=== PATIENT | male | born 1950 | race Caucasian/White ===

== ENCOUNTER 2017-09-20 11:51 | Inpatient (IN) | payer MEDICARE ==
[2017-09-20] MEDS ORDERED: LEVOFLOXACIN 750 MG IVPB ONE (12:10)
[2017-09-20] MEDS ORDERED: NS 0.9% 1000 ML* 1,000 ML IV ONE ×2 (12:20→16:01)
[2017-09-20 12:47] LABS: Hematocrit 32 % (42-52); Hemoglobin 10.8 g/dl (14.0-18.0); Mean Corpuscular HGB Conc 34 g/dl (31-36); Mean Corpuscular Hemoglobin 34 pg (27-31); Mean Corpuscular Volume 99 fL (80-94); Mean Platelet Volume 7 um3 (7.4-10.4); Platelet Count 492 10^3/ul (150-450); Red Blood Count 3.21 10^6/ul (4.0-5.4); Red Cell Distribution Width 13 % (10.5-15); White Blood Count 26.9 10^3/ul (3.5-10.8)
[2017-09-20 12:50] LABS: ABS Basophils 0.1 10^3/ul (0-0.2); ABS Eosinophils 0.1 10^3/ul (0-0.6); ABS Lymphocytes 0.6 10^3/ul (1.0-4.8); ABS Monocytes 1.8 10^3/ul (0-0.8); ABS Neutrophils 24.3 10^3/ul (1.5-7.7); ABS Nucleated RBC 0 10^3/ul; Eosinophil % 0.2 % (0-6); Lymphocyte % 2.3 % (25-47); Nucleated Red Blood Cells % 0
[2017-09-20 13:00] LABS: Urine Appearance Clear; Urine Blood 2+ (Negative); Urine Color Amber; Urine Ketones 2+ (Negative); Urine Protein 2+(100 mg/dL) (Negative); Urine Specific Gravity 1.028 (1.010-1.030); Urine Urobilinogen Negative (Negative)
[2017-09-20 13:05] LABS: EGFR Non-African American 55.4 (>60)
[2017-09-20] MEDS ORDERED: Levofloxacin 750 MG IVPREMIX(* 750 MG/150 ML BAG IVPB ONE (13:11)
--- NOTE | 2017-09-20 13:53 | RAD ---
HISTORY: Cough and fever COMPARISONS: October 31, 2010 VIEWS: 4: Frontal dual-energy and lateral views of the chest. FINDINGS: CARDIOMEDIASTINAL SILHOUETTE: The cardiomediastinal silhouette is normal. OBED: The obed are normal. PLEURA: The costophrenic angles are sharp. No pleural abnormalities are noted. LUNG PARENCHYMA: There is patchy alveolar opacification of left lower lobe. ABDOMEN: The upper abdomen is clear. There is no subphrenic gas. BONES AND SOFT TISSUES: The patient is status post median sternotomy. OTHER: None. IMPRESSION: PATCHY ATELECTASIS VERSUS EARLY CONSOLIDATION OF THE LEFT LOWER LUNG. RECOMMEND FOLLOW-UP UNTIL RESOLUTION TO EXCLUDE UNDERLYING PULMONARY PARENCHYMAL PATHOLOGY.
[2017-09-20] MEDS ORDERED: Insulin REGULAR(*) 1 UNITS UNIT IV PUSH ONE (14:21)
--- NOTE | 2017-09-20 15:01 | ED ---
Alyx Kumar Gabriel, scribed for Niles Rutherford MD on 09/20/17 at 1218 . Respiratory - HPI Summary HPI Summary: This patient is a 67 year old M presenting to [facility] accompanied by by his with a chief complaint of a URI that is getting worse. Patient reports decreased appetite, slurring of words, dizziness, fatigue, productive cough with yellow phlegm, and nausea. Patient denies fever, vomiting, diarrhea, dysuria, sore throat, and rhinorrhea. Pt was sick in [place] and was given Tamiflu for 5 days which did not help then he saw Dr. Collins and was put on a zpack for a URI. Pt has DM and had an A1C over 7 and a blood glucose over 300 at PCP. - History of Current Complaint Chief Complaint: EDWeakness Stated Complaint: UPPER RESPIRATORY ISSUE Time Seen by Provider: 09/20/17 12:12 Hx Obtained From: Patient Onset/Duration: Lasting Weeks, Still Present Timing: Constant Initial Severity: Moderate Current Severity: Moderate Pain Intensity: 0 Sputum Amount: Moderate Sputum Color: Yellow Aggravating Factor(s): Nothing Associated Signs and Symptoms: Negative - fever, vomiting, diarrhea, dysuria, sore throat, and rhinorrhea, URI, Dizziness - Allergy/Home Medications Allergies/Adverse Reactions: Allergies Allergy/AdvReac Type Severity Reaction Status Date / Time No Known Allergies Allergy Verified 09/20/17 12:21 Home Medications: Home Medications Aspirin Low Dose CHEW TAB* [Aspirin Low Dose TAB*] 81 mg PO DAILY 09/20/17 [ History Confirmed 09/20/17] Azithromycin TAB* [Zithromax TAB (Z-RADHA) 250 mg #6 tabs] 250 mg PO DAILY [History Confirmed 09/20/17] Codeine Phosphate/Guaifenesin [Cheratussin AC Syrup] 15 ml PO DAILY 09/20/17 [ History Confirmed 09/20/17] Cyanocobalamin TAB* [Vitamin B12 TAB*] 1,000 mcg PO DAILY 09/20/17 [History Confirmed 09/20/17] Folic Acid TAB* [Folvite TAB*] 1 mg PO DAILY 09/20/17 [History Confirmed ] Gabapentin CAP(*) [Neurontin 100 mg CAP(*)] 100 - 300 mg PO BEDTIME 09/20/17 [ History Confirmed 09/20/17] Metoprolol Tartrate TAB* [Lopressor TAB*] 25 mg PO QPM 09/20/17 [History Confirmed 09/20/17] Metoprolol Tartrate TAB* [Lopressor TAB*] 50 mg PO QAM 09/20/17 [History Confirmed 09/20/17] Niacin ER TAB* [Niaspan ER TAB*] 1,000 mg PO DAILY 09/20/17 [History Confirmed 09/20/17] Simvastatin TAB(NF) [Zocor(NF)] 5 mg PO QPM 09/20/17 [History Confirmed 09/20/17 ] metFORMIN* [Glucophage 500 MG TAB *] 500 mg PO BID 09/20/17 [History Confirmed 09/20/17] sulfaSALAzine TAB* [Azulfidine TAB*] 1,500 mg PO TID 09/20/17 [History Confirmed 09/20/17] PMH/Surg Hx/FS Hx/Imm Hx Endocrine/Hematology History: Reports: Hx Diabetes, Other Endocrine/ Hematological Disorders - Non Hodgkin lymphoma Cardiovascular History: Reports: Hx Coronary Artery Disease, Hx Hypercholesterolemia, Hx Hypertension Respiratory History: Denies: Hx Chronic Obstructive Pulmonary Disease (COPD) GI History: Reports: Other GI Disorders - UC Neurological History: Reports: Other Neuro Impairments/Disorders - Neuropathy - Cancer History Cancer Type, Location and Year: prostate Infectious Disease History: No Infectious Disease History: Denies: Traveled Outside the [place] in Last 30 Days - Family History Known Family History: Positive: Cardiac Disease Negative: Renal Disease, Seizure Disorder - Social History Lives: With Family Alcohol Use: Occasionally Hx Substance Use: No Substance Use Type: Reports: None Hx Tobacco Use: No Smoking Status (MU): Never Smoked Tobacco Review of Systems Positive: Fatigue, Other - decreased appetite. Negative: Fever Negative: Sore Throat, Nasal Discharge Positive: Cough - productive Positive: Nausea. Negative: Vomiting, Diarrhea Negative: dysuria Neurological: Other - dizziness Positive: Slurred Speech All Other Systems Reviewed And Are Negative: Yes Physical Exam - Summary Physical Exam Summary: VITAL SIGNS: Reviewed. GENERAL: Patient is a well-developed and nourished male who is lying comfortable in the stretcher. Patient is not in any acute respiratory distress. HEAD AND FACE: No signs of trauma. No ecchymosis, hematomas or skull depressions. No sinus tenderness. EYES: PERRLA, EOMI x 2, No injected conjunctiva, no nystagmus. EARS: Hearing grossly intact. Ear canals and tympanic membranes are within normal limits. MOUTH: dry oral mucosa NECK: Supple, trachea is midline, no adenopathy, no JVD, no carotid bruit, no c- spine tenderness, neck with full ROM. CHEST: Symmetric, no tenderness at palpation LUNGS: Clear to auscultation bilaterally. No wheezing or crackles. CVS: Regular rate and rhythm, S1 and S2 present, no murmurs or gallops appreciated. ABDOMEN: Soft, non-tender. No signs of distention. No rebound no guarding, and no masses palpated. Bowel sounds are normal. EXTREMITIES: FROM in all major joints, no edema, no cyanosis or clubbing. NEURO: Alert and oriented x 3. No acute neurological deficits. Speech is normal and follows commands. SKIN: Dry and warm Triage Information Reviewed: Yes Vital Signs On Initial Exam: Initial Vitals Temp Pulse Resp BP Pulse Ox 98.3 F 77 16 168/71 96 09/20/17 12:03 09/20/17 12:03 09/20/17 12:03 09/20/17 12:03 09/20/17 12:03 Vital Signs Reviewed: Yes Diagnostics - Vital Signs Vital Signs Temp Pulse Resp BP Pulse Ox 09/20/17 12:03 98.3 F 77 16 168/71 96 - Laboratory Lab Results: Lab Results 09/20/17 09/20/17 09/20/17 Range/Units 12:27 12:27 12:27 WBC 26.9 H (3.5-10.8) 10^3/ul RBC 3.21 L (4.0-5.4) 10^6/ul Hgb 10.8 L (14.0-18.0) g/dl Hct 32 L (42-52) % MCV 99 H (80-94) fL MCH 34 H (27-31) pg MCHC 34 (31-36) g/dl RDW 13 (10.5-15) % Plt Count 492 H (150-450) 10^3/ul MPV 7 L (7.4-10.4) um3 Neut % (Auto) 90.4 H (38-83) % Lymph % (Auto) 2.3 L (25-47) % [place] % (Auto) 6.8 (0-7) % Eos % (Auto) 0.2 (0-6) % Baso % (Auto) 0.3 (0-2) % Absolute Neuts (auto) 24.3 H (1.5-7.7) 10^3/ul Absolute Lymphs (auto) 0.6 L (1.0-4.8) 10^3/ul Absolute Monos (auto) 1.8 H (0-0.8) 10^3/ul Absolute Eos (auto) 0.1 (0-0.6) 10^3/ul Absolute Basos (auto) 0.1 (0-0.2) 10^3/ul Absolute Nucleated RBC 0 10^3/ul Nucleated RBC % 0 Sodium 126 L (133-145) mmol/L Potassium 3.8 (3.5-5.0) mmol/L Chloride 94 L (101-111) mmol/L Carbon Dioxide 16 L (22-32) mmol/L Anion Gap 16 H (2-11) mmol/L BUN 16 (6-24) mg/dL Creatinine 1.29 H (0.67-1.17) mg/dL Est GFR ( Amer) 71.2 (>60) Est GFR (Non-Af Amer) 55.4 (>60) BUN/Creatinine Ratio 12.4 (8-20) Glucose 401 H (70-100) mg/dL Lactic Acid 1.1 (0.5-2.0) mmol/L Calcium 10.0 (8.6-10.3) mg/dL Total Bilirubin 0.40 (0.2-1.0) mg/dL AST 13 (13-39) U/L ALT 13 (7-52) U/L Alkaline Phosphatase 102 (34-104) U/L Total Creatine Kinase 47 (10-223) U/L Troponin I 0.04 H* (<0.04) ng/mL C-Reactive Protein 303.39 H (< 5.00) mg/L Total Protein 7.8 (6.4-8.9) g/dL Albumin 3.7 (3.2-5.2) g/dL Globulin 4.1 H (2-4) g/dL Albumin/Globulin Ratio 0.9 L (1-3) Urine Color Urine Appearance Urine pH (5-9) Ur Specific [place] (1.010-1.030) Urine Protein (Negative) Urine Ketones (Negative) Urine Blood (Negative) Urine Nitrate (Negative) Urine Bilirubin (Negative) Urine Urobilinogen (Negative) Ur Leukocyte Esterase (Negative) Urine WBC (Auto) (Absent) Urine RBC (Auto) (Absent) Ur Squamous Epith Cells (Absent) Urine Bacteria (Absent) Urine Glucose (Negative) Influenza A (Rapid) (Negative) Influenza B (Rapid) (Negative) 09/20/17 09/20/17 Range/Units 12:41 12:44 WBC (3.5-10.8) 10^3/ul RBC (4.0-5.4) 10^6/ul Hgb (14.0-18.0) g/dl Hct (42-52) % MCV (80-94) fL MCH (27-31) pg MCHC (31-36) g/dl RDW (10.5-15) % Plt Count (150-450) 10^3/ul MPV (7.4-10.4) um3 Neut % (Auto) (38-83) % Lymph % (Auto) (25-47) % [place] % (Auto) (0-7) % Eos % (Auto) (0-6) % Baso % (Auto) (0-2) % Absolute Neuts (auto) (1.5-7.7) 10^3/ul Absolute Lymphs (auto) (1.0-4.8) 10^3/ul Absolute Monos (auto) (0-0.8) 10^3/ul Absolute Eos (auto) (0-0.6) 10^3/ul Absolute Basos (auto) (0-0.2) 10^3/ul Absolute Nucleated RBC 10^3/ul Nucleated RBC % Sodium (133-145) mmol/L Potassium (3.5-5.0) mmol/L Chloride (101-111) mmol/L Carbon Dioxide (22-32) mmol/L Anion Gap (2-11) mmol/L BUN (6-24) mg/dL Creatinine (0.67-1.17) mg/dL Est GFR ( Amer) (>60) Est GFR (Non-Af Amer) (>60) BUN/Creatinine Ratio (8-20) Glucose (70-100) mg/dL Lactic Acid (0.5-2.0) mmol/L Calcium (8.6-10.3) mg/dL Total Bilirubin (0.2-1.0) mg/dL AST (13-39) U/L ALT (7-52) U/L Alkaline Phosphatase (34-104) U/L Total Creatine Kinase (10-223) U/L Troponin I (<0.04) ng/mL C-Reactive Protein (< 5.00) mg/L Total Protein (6.4-8.9) g/dL Albumin (3.2-5.2) g/dL Globulin (2-4) g/dL Albumin/Globulin Ratio (1-3) Urine Color Eileen Urine Appearance Clear Urine pH 5.0 (5-9) Ur Specific [place] 1.028 (1.010-1.030) Urine Protein 2+(100 mg/dl) A (Negative) Urine Ketones 2+ A (Negative) Urine Blood 2+ A (Negative) Urine Nitrate Negative (Negative) Urine Bilirubin Negative (Negative) Urine Urobilinogen Negative (Negative) Ur Leukocyte Esterase Negative (Negative) Urine WBC (Auto) Trace(0-5/hpf) (Absent) Urine RBC (Auto) Trace(0-2/hpf) (Absent) Ur Squamous Epith Cells Present A (Absent) Urine Bacteria Absent (Absent) Urine Glucose 3+(>=500 mg/dl) A (Negative) Influenza A (Rapid) Negative (Negative) Influenza B (Rapid) Negative (Negative) Result Diagrams: 09/20/17 12:27 09/20/17 12:27 Lab Statement: Any lab studies that have been ordered have been reviewed, and results considered in the medical decision making process. - Radiology CXR Radiology Interpretation Completed By: Radiologist - PATCHY ATELECTASIS VERSUS EARLY CONSOLIDATION OF THE LEFT LOWER LUNG. RECOMMEND FOLLOW-UP UNTIL RESOLUTION TO EXCLUDE UNDERLYING PULMONARY PARENCHYMAL PATHOLOGY. ED physician has reviewed this radiology report. - EKG 12:50 Cardiac Rate: NL EKG Rhythm: Sinus Rhythm - at 79 BPM EKG Interpretation: no ST elevations Disposition - Course Assessment/Plan: An EKG reveals no ST elevations. CXR reveals, per radiologist , PATCHY ATELECTASIS VERSUS EARLY CONSOLIDATION OF THE LEFT LOWER LUNG. RECOMMEND FOLLOW-UP. UNTIL RESOLUTION TO EXCLUDE UNDERLYING PULMONARY PARENCHYMAL PATHOLOGY. Patient was negative for influenza A and B. UA was negative for UTI. Test results with no significant abnormalities except for a WBC of 26.9, sodium of 126, CRP of 303, glucose of 401, slight anemia, creatinine of 129, and a Trop of 0.04. In the ED course the patient was given IV fluids, insulin, and Levaquin for PNA. I discussed all the findings and test results with the patient.The patient is hemodynamically stable and alert and orinetedx3. The patient is diagnosed with hyperglycemia, increased troponin r/o acute coronary syndrome, and PNA. We discussed patient care with Dr. Alejandre and he accepted the patient for admission. Patient will be admitted to Dr. Alejandre The patient is agreeable with this plan - Diagnoses Provider Diagnoses: PNA (pneumonia), Hyperglycemia, Elevated troponin, r/o acute coronary syndrome - Physician Notifications Discussed Care Of Patient With: Luiz Alejandre Time Discussed With Above Provider: 13:58 Instructed by Provider To: Admit As Inpatient Discharge - Discharge Plan Condition: Fair Disposition: ADMITTED TO [facility] Referrals: Bala Collins MD [Primary Care Provider] - The documentation as recorded by the Alyx nails Gabriel accurately reflects the service I personally performed and the decisions made by , Niles Rutherford MD.
[2017-09-20] MEDS ORDERED: Ondansetron INJ* 2 MG/ML VIAL IV PRN (15:50)
[2017-09-20] MEDS ORDERED: Albuterol/Ipratropium NEB.SOL* Albuterol 2.5 MG/Ipratropium 0.5 MG 3 ML INH PRN (15:50)
[2017-09-20] MEDS ORDERED: Dextrose 50% Syringe 50 ML* 25 GM/50 ML SYRINGE IV PUSH PRN (15:54)
[2017-09-20] MEDS ORDERED: NS 0.9% 1000 ML* 1,000 ML IV SCH (16:15)
[2017-09-20] MEDS: cefTRIAXone(*) 1 GM in NS 0.9% 50 ML* 50 ML IVPB SCH (16:25)
[2017-09-20] MEDS: Azithromycin IV(*) 500 MG in NS 0.9% 250 ML* 250 ML IVPB SCH (17:46)
[2017-09-20] MEDS: Metoprolol Tartrate TAB* 25 MG PO SCH (17:47)
[2017-09-20] MEDS: Insulin LISPRO* 1 UNITS UNIT SUBCUT SCH (17:47)
[2017-09-20] MEDS ORDERED: Atorvastatin* 10 MG TAB PO SCH (18:00)
[2017-09-20] MEDS: CMCS:Simvastatin TAB(NF) 10 MG TAB PO SCH (18:28)
--- NOTE | 2017-09-20 20:32 | HP ---
CC: Dr. Collins * HISTORY AND PHYSICAL: DATE OF ADMISSION: 09/20/17 PRIMARY CARE PROVIDER: Dr. Collins. ATTENDING PHYSICIAN WHILE IN THE HOSPITAL: Dr. Ivy * (report dictated by Balaji Lubin NP). CHIEF COMPLAINT: 1. Cough. 2. Fever. HISTORY OF PRESENT ILLNESS: Mr. Mccarthy is a 67-year-old male patient. He carries a history of lymphoma, anemia, hypertension, diabetes, hyperlipidemia, CAD, and prostate cancer. He comes in to the ED today. He states about 2 weeks ago, he was in [place]. He was over there, he started developing upper respiratory symptoms, runny nose, sore throat, cough, fevers. The was noticing that he had wheezing in his chest. He had a rattle in his chest. He had a pretty productive cough. They went to Urgent Care and in the ER down there. He was ultimately diagnosed with influenza with a negative flu swab according to the . He was put on Tamiflu for 5 days. He initially got a little bit better. He came home and since being home, he still had this persistent cough, low-grade fevers. He had regularly scheduled appointment with Dr. Collins, his PCP, on , who evaluated him. He put him on azithromycin. The patient states that despite this though, he is short of breath particularly if he does anything or particularly if he coughs. He states that he has been fever still. He has had the chest pain when he does cough. He denies having any orthopnea or nocturnal dyspnea. Denies having any chest pressure. It is really just a pain when he coughs. He denies having any abdominal pain. There has been no nausea, vomiting, or diarrhea. He does admit to having again productive cough at times. He came in to the ED today. He was evaluated. It was noted that he had white count of about 26,000. His x- ray was concerning for pneumonia and he had indeterminate troponin and CRP was 300. We were asked to evaluate for admission because of pneumonia. PAST MEDICAL HISTORY: Significant for: 1. Lymphoma. 2. Anemia. 3. Hypertension. 4. Diabetes. 5. Hyperlipidemia. 6. CAD. 7. Prostate cancer. PAST SURGICAL HISTORY: 1. The patient has had CABG. 2. He has had prostatectomy. HOME MEDICATIONS: According to the list provided include: 1. Codeine with guaifenesin 15 cc p.o. daily. 2. B12 1000 mcg daily. 3. Z-Pranav take as directed. 4. Lopressor 50 mg in the morning, 25 mg at bedtime. 5. Folic acid 1 mg p.o. daily. 6. Aspirin 81 mg daily. 7. Sulfasalazine 1500 mg p.o. t.i.d. 8. Niaspan 1000 mg p.o. daily. 9. Metformin 500 mg twice a day. 10. Zocor 5 mg daily. 11. Gabapentin 100 and 300 mg at bedtime. ALLERGIES TO MEDICATIONS: Include no known drug allergies. FAMILY HISTORY: His mother had a history of pancreatic cancer. Father had a history of prostate cancer and CAD. SOCIAL HISTORY: He is a former smoker. He quit when he was 39 years old. He occasionally drinks alcohol. Surrogate decision maker is his . REVIEW OF SYSTEMS: There is no documented fever here, but he does admit to subjectively having low-grade temperatures at home. He denies having any ear discharge. There is no rhinorrhea. Denies having any sore throat currently. Denies any abdominal pain. He does admit to having rhinorrhea. He did admit to having a sore throat. He does admit to having chest pain with cough. He denies having any shortness of breath with the exception with exertion and when he is coughing. He denies having any abdominal pain. There is no nausea, no vomiting. Denied having any dysuria. No frequency. There was no loss of consciousness. No pruritus and no skin ulcerations. Review of 14 systems was completed, all others negative. PHYSICAL EXAMINATION GENERAL: At this time, Mr. Mccarthy is a 67-year-old male patient. Appears to be well nourished, well developed. He is sitting on the ER stretcher. He does not appear to be in any acute distress. VITAL SIGNS: Blood pressure 175/71, pulse 87, respirations were 18, O2 sat 95% , temperature 98.3. HEENT: Head: Atraumatic, normocephalic. Eyes: EOMs are intact. Sclerae anicteric and not pale. Throat: Oral mucosa appears to be dry. No oropharyngeal erythema. NECK: Supple. LUNGS: He did have some crackles in the left base. He had equal diaphragmatic expansion. No wheezes were noted. HEART: Sounds S1, S2. Regular rate and rhythm. No murmurs, rubs, or gallops. ABDOMEN: Soft, flat, nontender. Bowel sounds were present. EXTREMITIES: Pulses were 2+ throughout. He is moving all 4 extremities with 5/ 5 strength. NEUROLOGIC: The patient is awake. He is alert. He is oriented x3. His tongue is midline. His tax expert were equal. He had no gross focal deficits. SKIN: Intact. LABORATORY DATA/DIAGNOSTIC STUDIES: WBC of 26.9, RBC of 3.21, hemoglobin of 10.8, hematocrit of 32, platelet count of 492. His sodium was 126, potassium was 3.8, chloride was 94, bicarb 16, BUN 16, creatinine 1.29, glucose of 401. Lactate 1.1. Calcium of 10.0. Total bili 0.4, AST 13, ALT 13, alk phos 102. CK 47. Troponin 0.04. CRP of 303. Albumin of 3.7. Urine showed 2+ protein, 2 + ketones, 2+ blood, 3+ glucose. Serology was negative for flu. Chest x-ray today shows patchy atelectasis versus early consolidation of the left lower lung , recommend followup until resolution to exclude underlying pulmonary parenchymal pathology. He had an EKG obtained today, which showed normal sinus rhythm, appears to have a right bundle-branch block, inverted T wave was noted in V1 and V2. Last EKG from 10 years ago again shows normal sinus rhythm. No more recent for comparison. Old medical records were reviewed. ASSESSMENT AND PLAN: Mr. Mccarthy is a 67-year-old male patient coming in to the ED today with complaints of cough, cold symptoms, recently diagnosed with flu in [place], now coming in today, found to be septic with pneumonia. He will be admitted under inpatient status for: 1. Pneumonia with signs of sepsis. At this point, we will go ahead and get the patient on a liter of fluids wide open. We will go ahead and put him on azithromycin and Rocephin. We will get Legionella antigen, Strep pneumo antigen. In addition to this, he is flu swab negative. We will go ahead and try to get a sputum culture if possible and we will continue to follow. 2. Elevated troponins. This is probably secondary to demand ischemia. He will be placed on telemetry. We will monitor him. He is on aspirin, statin, beta-clau already. He is not having any chest pain currently. We will continue to monitor. Repeat EKG in the morning. If they continue to elevate, I will get Cardiology input. 3. Lymphoma. He can follow with Dr. Barbosa. 4. Anemia. Follow with Dr. Barbosa. We will trend the H and H. 5. Hypertension. I will continue meds as prescribed. 6. Diabetes. He will be on lispro sliding scale. 7. Hyperlipidemia. Continue statin therapy. 8. Coronary artery disease. Continue his aspirin, statin, and beta-clau. 9. Prostate cancer. Follow up with his PCP. 10. DVT prophylaxis. He will be placed on heparin subcu. 11. Code status: Full code. 12. Fluids, electrolytes, and nutrition. He can have a consistent carb diet. TIME SPENT: Time spent on the admission was approximately 60 minutes; greater than half of this time spent [id number] with the patient obtaining my history and physical, the other half time was spent going over the plan of care of the patient and implementing the plan of care. I did discuss the plan of care with my attending, Dr. Ivy; he is in agreement. BALAJI LUBIN NP [id number]/[facility] #: [id number] SANDRITA
[2017-09-20 21:00] LABS: EGFR Non-African American 68.7 (>60)
[2017-09-20] MEDS ORDERED: Gabapentin CAP(*) 100 MG PO SCH (21:00)
[2017-09-20] MEDS ORDERED: sulfaSALAzine TAB* 500 MG PO SCH (21:00)
[2017-09-20] MEDS: Heparin VIAL(*) 5000 UNITS/ML VIAL (FIVE THOUSAND) SUBCUT SCH (22:15)
[2017-09-20] MEDS: Niacin ER TAB* 500 MG PO SCH (22:16)
[2017-09-20] MEDS: CMCS:Melatonin (NF) 3 MG TAB PO PRN (23:33)
[2017-09-21] MEDS: hydrALAZINE IV* 20 MG/ML VIAL IV PRN
[2017-09-21] MEDS: Acetaminophen TAB* 325 MG PO PRN ×3 (00:07→22:04)
[2017-09-21] MEDS: Benzonatate CAP* 100 MG PO PRN (00:07)
[2017-09-21] MEDS: Heparin VIAL(*) 5000 UNITS/ML VIAL (FIVE THOUSAND) SUBCUT SCH ×3 (05:05→21:44)
[2017-09-21 06:10] LABS: Hematocrit 31 % (42-52); Hemoglobin 10.2 g/dl (14.0-18.0); Mean Corpuscular HGB Conc 33 g/dl (31-36); Mean Corpuscular Hemoglobin 33 pg (27-31); Mean Corpuscular Volume 99 fL (80-94); Mean Platelet Volume 7 um3 (7.4-10.4); Platelet Count 481 10^3/ul (150-450); Red Blood Count 3.11 10^6/ul (4.0-5.4); Red Cell Distribution Width 13 % (10.5-15); White Blood Count 20.7 10^3/ul (3.5-10.8)
[2017-09-21 06:18] LABS: INR 1.37 (0.77-1.02)
[2017-09-21 06:48] LABS: ABS Basophils 0.1 10^3/ul (0-0.2); ABS Eosinophils 0.1 10^3/ul (0-0.6); ABS Lymphocytes 0.5 10^3/ul (1.0-4.8); ABS Monocytes 1.9 10^3/ul (0-0.8); ABS Nucleated RBC 0 10^3/ul; Eosinophil % 0.3 % (0-6); Lymphocyte % 2.5 % (25-47); Nucleated Red Blood Cells % 0
[2017-09-21] MEDS ORDERED: Insulin REGULAR(*) 1 UNITS UNIT IV PUSH ONE (07:51)
--- NOTE | 2017-09-21 07:59 | PN ---
Subjective Date of Service: 09/21/17 Interval History: Admitted yesterday with PNA - Overnight remained SOB, intermittent coughing with right sided pleuritic chest pain. States his brought him in because of his SOB and that he was so weak and not eating. States his sugars are usually in the high 100's. Only takes metformin. Still no appetite Objective Active Medications: Acetaminophen (Tylenol Tab*) 650 mg PO Q4H PRN PRN Reason: FEVER/PAIN Last Admin: 09/21/17 05:01 Dose: 650 mg Albuterol/Ipratropium (Duoneb (Albuterol 2.5 Mg/Ipratropium 0.5 Mg)) 1 neb INH Q4H PRN PRN Reason: SOB/WHEEZING Aspirin (Aspirin Low Dose Tab*) 81 mg PO DAILY [facility] Benzonatate (Tessalon Cap*) 100 mg PO BID PRN PRN Reason: COUGH Last Admin: 09/21/17 00:07 Dose: 100 mg Cyanocobalamin (Vitamin B12 Tab*) 1,000 mcg PO DAILY [facility] Dextrose (D50w Syringe 50 Ml*) 12.5 gm IV PUSH .FOR FS < 60 - SS PRN PRN Reason: FS < 60 Folic Acid (Folvite Tab*) 1 mg PO DAILY [facility] Gabapentin (Neurontin Cap(*)) 300 mg PO BEDTIME [facility] Heparin Sodium (Porcine) (Heparin Vial(*)) 5,000 units SUBCUT Q8HR [facility] Last Admin: 09/21/17 05:05 Dose: 5,000 units Hydralazine HCl (Apresoline Iv*) 10 mg IV Q4H PRN PRN Reason: Systolic >170 Last Admin: 09/21/17 00:00 Dose: 10 mg Ceftriaxone Sodium 1 gm/ (Sodium Chloride) 50 mls @ 200 mls/hr IVPB Q24H [facility] Last Admin: 09/20/17 16:25 Dose: 200 mls/hr Azithromycin 500 mg/ Sodium (Chloride) 250 mls @ 250 mls/hr IVPB Q24H [facility] Last Admin: 09/20/17 17:46 Dose: 250 mls/hr Sodium Chloride (Ns 0.9% 1000 Ml*) 1,000 mls @ 100 mls/hr IV PER RATE [facility] Last Admin: 09/20/17 17:29 Dose: 100 mls/hr Insulin Human Regular (Insulin Regular Ivpb) 100 units in 100 mls @ 8.704 mls/ hr IVPB .(INITIAL RATE) [place]; 0.1 UNITS/KG/HR PRN Reason: Protocol Sodium Chloride (Ns 0.9% 1000 Ml*) 2,000 mls @ 1,000 mls/hr IV .PER RATE ONE Stop: 09/21/17 09:50 Potassium Chloride (Potassium Chloride 20 Meq/100 Ml Ivpremix*) 20 meq in 100 mls @ 50 mls/hr IV Q2H [place] Stop: 09/21/17 11:59 Potassium Chloride/Sodium Chloride (Ns 0.9% W/ 20 Meq Kcl 1000 Ml*) 1,000 mls @ 200 mls/hr IV PER RATE [facility] Melatonin (Melatonin (Nf)) 3 mg PO BEDTIME PRN PRN Reason: SLEEP Last Admin: 09/20/17 23:33 Dose: 3 mg Metoprolol Tartrate (Lopressor Tab*) 25 mg PO QPM [facility] Last Admin: 09/20/17 17:47 Dose: 25 mg Metoprolol Tartrate (Lopressor Tab*) 50 mg PO QAM [facility] Niacin (Niaspan Er Tab*) 1,000 mg PO BEDTIME [facility] Last Admin: 09/20/17 22:16 Dose: 1,000 mg Ondansetron HCl (Zofran Inj*) 4 mg IV Q6H PRN PRN Reason: NAUSEA Simvastatin (Zocor(Nf)) 5 mg PO QPM [facility] Last Admin: 09/20/17 18:28 Dose: 5 mg Sulfasalazine (Azulfidine Tab*) 2,000 mg PO BID [facility] Vital Signs - 8 hr 09/20/17 09/21/17 09/21/17 23:17 00:24 01:09 Temperature 98.9 F 98.5 F Pulse Rate 88 88 Respiratory 16 28 20 Rate Blood Pressure 172/74 164/56 (mmHg) O2 Sat by Pulse 95 96 Oximetry 09/21/17 09/21/17 03:26 07:15 Temperature 98.0 F 97.9 F Pulse Rate 97 98 Respiratory 22 20 Rate Blood Pressure 153/55 184/73 (mmHg) O2 Sat by Pulse 96 97 Oximetry Oxygen Devices in Use Now: None Appearance: NAD, tachpneic Ears/Nose/Mouth/Throat: Mucous Membranes Moist Respiratory: Symmetrical Chest Expansion and Respiratory Effort, Clear to Auscultation, - - No W/R/R Cardiovascular: RRR Abdominal: NL Sounds; No Tenderness; No Distention Extremities: No Edema Neurological: Alert and Oriented x 3, NL Muscle Strength and Tone Result Diagrams: 09/21/17 05:32 09/21/17 08:36 Additional Lab and Data: Lab Results 09/20/17 09/20/17 09/20/17 Range/Units 12:27 12:27 12:27 WBC 26.9 H (3.5-10.8) 10^3/ul RBC 3.21 L (4.0-5.4) 10^6/ul Hgb 10.8 L (14.0-18.0) g/dl Hct 32 L (42-52) % MCV 99 H (80-94) fL MCH 34 H (27-31) pg MCHC 34 (31-36) g/dl RDW 13 (10.5-15) % Plt Count 492 H (150-450) 10^3/ul MPV 7 L (7.4-10.4) um3 Neut % (Auto) 90.4 H (38-83) % Lymph % (Auto) 2.3 L (25-47) % [place] % (Auto) 6.8 (0-7) % Eos % (Auto) 0.2 (0-6) % Baso % (Auto) 0.3 (0-2) % Absolute Neuts (auto) 24.3 H (1.5-7.7) 10^3/ul Absolute Lymphs (auto) 0.6 L (1.0-4.8) 10^3/ul Absolute Monos (auto) 1.8 H (0-0.8) 10^3/ul Absolute Eos (auto) 0.1 (0-0.6) 10^3/ul Absolute Basos (auto) 0.1 (0-0.2) 10^3/ul Absolute Nucleated RBC 0 10^3/ul Nucleated RBC % 0 Sodium 126 L (133-145) mmol/L Potassium 3.8 (3.5-5.0) mmol/L Chloride 94 L (101-111) mmol/L Carbon Dioxide 16 L (22-32) mmol/L Anion Gap 16 H (2-11) mmol/L BUN 16 (6-24) mg/dL Creatinine 1.29 H (0.67-1.17) mg/dL Est GFR ( Amer) 71.2 (>60) Est GFR (Non-Af Amer) 55.4 (>60) BUN/Creatinine Ratio 12.4 (8-20) Glucose 401 H (70-100) mg/dL Lactic Acid 1.1 (0.5-2.0) mmol/L Calcium 10.0 (8.6-10.3) mg/dL Total Bilirubin 0.40 (0.2-1.0) mg/dL AST 13 (13-39) U/L ALT 13 (7-52) U/L Alkaline Phosphatase 102 (34-104) U/L Total Creatine Kinase 47 (10-223) U/L Troponin I 0.04 H* (<0.04) ng/mL C-Reactive Protein 303.39 H (< 5.00) mg/L Total Protein 7.8 (6.4-8.9) g/dL Albumin 3.7 (3.2-5.2) g/dL Globulin 4.1 H (2-4) g/dL Albumin/Globulin Ratio 0.9 L (1-3) Urine Color Urine Appearance Urine pH (5-9) Ur Specific [place] (1.010-1.030) Urine Protein (Negative) Urine Ketones (Negative) Urine Blood (Negative) Urine Nitrate (Negative) Urine Bilirubin (Negative) Urine Urobilinogen (Negative) Ur Leukocyte Esterase (Negative) Urine WBC (Auto) (Absent) Urine RBC (Auto) (Absent) Ur Squamous Epith Cells (Absent) Urine Bacteria (Absent) Urine Glucose (Negative) Influenza A (Rapid) (Negative) Influenza B (Rapid) (Negative) 09/20/17 09/20/17 Range/Units 12:41 12:44 WBC (3.5-10.8) 10^3/ul RBC (4.0-5.4) 10^6/ul Hgb (14.0-18.0) g/dl Hct (42-52) % MCV (80-94) fL MCH (27-31) pg MCHC (31-36) g/dl RDW (10.5-15) % Plt Count (150-450) 10^3/ul MPV (7.4-10.4) um3 Neut % (Auto) (38-83) % Lymph % (Auto) (25-47) % [place] % (Auto) (0-7) % Eos % (Auto) (0-6) % Baso % (Auto) (0-2) % Absolute Neuts (auto) (1.5-7.7) 10^3/ul Absolute Lymphs (auto) (1.0-4.8) 10^3/ul Absolute Monos (auto) (0-0.8) 10^3/ul Absolute Eos (auto) (0-0.6) 10^3/ul Absolute Basos (auto) (0-0.2) 10^3/ul Absolute Nucleated RBC 10^3/ul Nucleated RBC % Sodium (133-145) mmol/L Potassium (3.5-5.0) mmol/L Chloride (101-111) mmol/L Carbon Dioxide (22-32) mmol/L Anion Gap (2-11) mmol/L BUN (6-24) mg/dL Creatinine (0.67-1.17) mg/dL Est GFR ( Amer) (>60) Est GFR (Non-Af Amer) (>60) BUN/Creatinine Ratio (8-20) Glucose (70-100) mg/dL Lactic Acid (0.5-2.0) mmol/L Calcium (8.6-10.3) mg/dL Total Bilirubin (0.2-1.0) mg/dL AST (13-39) U/L ALT (7-52) U/L Alkaline Phosphatase (34-104) U/L Total Creatine Kinase (10-223) U/L Troponin I (<0.04) ng/mL C-Reactive Protein (< 5.00) mg/L Total Protein (6.4-8.9) g/dL Albumin (3.2-5.2) g/dL Globulin (2-4) g/dL Albumin/Globulin Ratio (1-3) Urine Color Eileen Urine Appearance Clear Urine pH 5.0 (5-9) Ur Specific [place] 1.028 (1.010-1.030) Urine Protein 2+(100 mg/dl) A (Negative) Urine Ketones 2+ A (Negative) Urine Blood 2+ A (Negative) Urine Nitrate Negative (Negative) Urine Bilirubin Negative (Negative) Urine Urobilinogen Negative (Negative) Ur Leukocyte Esterase Negative (Negative) Urine WBC (Auto) Trace(0-5/hpf) (Absent) Urine RBC (Auto) Trace(0-2/hpf) (Absent) Ur Squamous Epith Cells Present A (Absent) Urine Bacteria Absent (Absent) Urine Glucose 3+(>=500 mg/dl) A (Negative) Influenza A (Rapid) Negative (Negative) Influenza B (Rapid) Negative (Negative) Microbiology and Other Data: Microbiology 09/20/17 18:12 Gram Stain - Final Sputum 09/20/17 19:00 Legionella Urinary Antigen - Final Urine Negative Legionella Streptococcus pneumoniae Ag Screen - Final Negative S. pneumo Antigen Assess/Plan/Problems-Billing Assessment: This is a 67 yr old male with PMHx of lymphoma, CAD, DM and former smoker who presents with URI s/s and weakness. This am found to have anion gap acidosis with DKA - Patient Problems (1) DKA (diabetic ketoacidoses) Current Visit: Yes Status: Acute Code(s): E13.10 - OTH DIABETES MELLITUS WITH KETOACIDOSIS WITHOUT COMA SNOMED Code(s): 299834791 Comment: A. Anion gap acidosis - likely driven by his pneumonia Plan Transfer to ICU - IVFs, Insulin bolus and drip ordered Glucose q1 hr, BMP q4 hour Will check HGbA1c, check pH and U/A (ketones on initial U/A) May need bicarb depending on pH (2) Pneumonia Current Visit: Yes Status: Acute Code(s): J18.9 - PNEUMONIA, UNSPECIFIED ORGANISM SNOMED Code(s): 943666231 Comment: A. Clinically improving - white count trending down Remains tachpneic but suspect from his acidosis CXR appears viral however significant white count Legionella and pneumoccal negative Plan Check procalcitonin Continue Ceftriaxone and Azithromycin (3) Diabetes Current Visit: Yes Status: Acute Code(s): E11.9 - TYPE 2 DIABETES MELLITUS WITHOUT COMPLICATIONS SNOMED Code(s): 62137998 Comment: A/P - As above now in DKA Continuing to hold metformin (4) Neuropathy Current Visit: Yes Status: Acute Code(s): G62.9 - POLYNEUROPATHY, UNSPECIFIED SNOMED Code(s): 460832547 Comment: A/P stable continue gabapentin (5) Ulcerative colitis Current Visit: Yes Status: Acute Code(s): K51.90 - ULCERATIVE COLITIS, UNSPECIFIED, WITHOUT COMPLICATIONS SNOMED Code(s): 10467787 Comment: A/P stable - continue sulfasalazine (6) Lymphoma Current Visit: Yes Status: Acute Comment: A/P - in remission - monitor Patient should follow up as scheduled with Dr. Barbosa this month (7) Hyperlipidemia Current Visit: Yes Status: Acute Code(s): E78.5 - HYPERLIPIDEMIA, UNSPECIFIED SNOMED Code(s): 08666885 Comment: A/P - continue niacin and simvastatin (8) DVT prophylaxis Current Visit: Yes Status: Acute Code(s): FWP8658 - SNOMED Code(s): 838899746 Comment: Heparin SQ TID (9) Coronary artery disease Current Visit: Yes Status: Acute Code(s): I25.10 - ATHSCL HEART DISEASE OF [place] CORONARY ARTERY W/O ANG PCTRS SNOMED Code(s): 02104276 Comment: A/P Does have chest pain with coughing - likely pleuritic/ musculoskeletal - Trops x 3 remained flat (10) Full code status Current Visit: Yes Status: Acute Code(s): Z78.9 - OTHER SPECIFIED HEALTH STATUS SNOMED Code(s): 021863800
[2017-09-21] MEDS ORDERED: Insulin REGULAR IVPB 100 UNITS/100 ML UNIT IVPB SCH (08:00)
[2017-09-21] MEDS ORDERED: NS 0.9% w/ 20 Meq KCL 1000 ML* 1,000 ML IV SCH (08:00)
[2017-09-21] MEDS: NS 0.9% 1000 ML* 2,000 ML IV ONE ×2 (08:56→10:08)
[2017-09-21 09:01] LABS: EGFR Non-African American 59.6 (>60)
[2017-09-21 09:11] LABS: Urine Appearance Clear; Urine Blood 2+ (Negative); Urine Color Amber; Urine Ketones 2+ (Negative); Urine Protein 2+(100 mg/dL) (Negative); Urine Specific Gravity 1.026 (1.010-1.030); Urine Urobilinogen Negative (Negative)
[2017-09-21] MEDS: KCL 10 MEQ/50 ML IVPREMIX* 10 MEQ/50 ML BAG IV SCH ×4 (10:35→15:41)
[2017-09-21] MEDS: Cyanocobalamin TAB* 500 MCG PO SCH (10:40)
[2017-09-21] MEDS: Metoprolol Tartrate TAB* 25 MG PO SCH ×2 (10:40→17:51)
[2017-09-21] MEDS: Aspirin Low Dose CHEW TAB* 81 MG PO SCH (10:41)
[2017-09-21] MEDS: sulfaSALAzine TAB* 500 MG PO SCH ×2 (10:41→21:44)
[2017-09-21] MEDS: Folic Acid TAB* 1 MG PO SCH (10:41)
[2017-09-21 12:47] LABS: EGFR Non-African American 62.6 (>60)
[2017-09-21] MEDS ORDERED: D5W 1/2 NS KCl 20 Meq 1000 ML* 1,000 ML IV SCH (13:00)
[2017-09-21] MEDS ORDERED: KCL 10 MEQ/50 ML IVPREMIX* 20 MEQ/100 ML BAG ONE (14:48)
[2017-09-21 14:53] LABS: EGFR Non-African American 73.5 (>60)
[2017-09-21] MEDS ORDERED: Insulin GLARGINE(*) 1 UNITS UNIT SUBCUT SCH (15:00)
[2017-09-21] MEDS ORDERED: Dextrose 50% Syringe 50 ML* 25 GM/50 ML SYRINGE IV PUSH PRN ×2 (15:10→17:19)
[2017-09-21] MEDS ORDERED: Potassium Chlor TAB* 20 MEQ TAB.ER PO ONE (15:15)
[2017-09-21] MEDS: Insulin LISPRO* 1 UNITS UNIT SUBCUT SCH ×2 (17:49→20:18)
[2017-09-21] MEDS: Azithromycin IV(*) 500 MG in NS 0.9% 250 ML* 250 ML IVPB SCH (17:50)
[2017-09-21] MEDS: CMCS:Simvastatin TAB(NF) 10 MG TAB PO SCH (17:50)
[2017-09-21] MEDS ORDERED: Insulin LISPRO* 1 UNITS UNIT SUBCUT SCH (18:00)
[2017-09-21] MEDS: Gabapentin CAP(*) 100 MG PO SCH (21:43)
[2017-09-21] MEDS: Niacin ER TAB* 500 MG PO SCH (21:43)
[2017-09-21] MEDS: cefTRIAXone(*) 1 GM in NS 0.9% 50 ML* 50 ML IVPB SCH (21:44)
[2017-09-21] MEDS: CMCS:Melatonin (NF) 3 MG TAB PO PRN (22:06)
[2017-09-22] MEDS: hydrALAZINE IV* 20 MG/ML VIAL IV PRN ×3 (04:37→20:33)
[2017-09-22] MEDS ORDERED: Metoprolol Tartrate IV* 1 MG/ML 5 ML VIAL IV ONE (05:14)
[2017-09-22] MEDS: Heparin VIAL(*) 5000 UNITS/ML VIAL (FIVE THOUSAND) SUBCUT SCH ×3 (05:23→20:44)
[2017-09-22 06:06] LABS: Hematocrit 30 % (42-52); Hemoglobin 9.7 g/dl (14.0-18.0); Mean Corpuscular HGB Conc 33 g/dl (31-36); Mean Corpuscular Hemoglobin 33 pg (27-31); Mean Corpuscular Volume 101 fL (80-94); Mean Platelet Volume 7 um3 (7.4-10.4); Platelet Count 485 10^3/ul (150-450); Red Blood Count 2.98 10^6/ul (4.0-5.4); Red Cell Distribution Width 13 % (10.5-15); White Blood Count 19.4 10^3/ul (3.5-10.8)
[2017-09-22 06:20] LABS: EGFR Non-African American 63.9 (>60)
[2017-09-22 06:46] LABS: ABS Basophils 0.1 10^3/ul (0-0.2); ABS Eosinophils 0.1 10^3/ul (0-0.6); ABS Lymphocytes 0.9 10^3/ul (1.0-4.8); ABS Monocytes 1.8 10^3/ul (0-0.8); ABS Neutrophils 16.5 10^3/ul (1.5-7.7); ABS Nucleated RBC 0 10^3/ul; Eosinophil % 0.6 % (0-6); Lymphocyte % 4.9 % (25-47); Nucleated Red Blood Cells % 0
[2017-09-22] MEDS ORDERED: Potassium Chlor TAB* 20 MEQ TAB.ER PO ONE (07:46)
[2017-09-22] MEDS ORDERED: Iodixanol* (CONTRAST) 320 MG/ML 100 ML SDV IV ONE (07:55)
[2017-09-22] MEDS ORDERED: Insulin REGULAR IVPB 100 UNITS/100 ML UNIT IVPB SCH (08:00)
[2017-09-22] MEDS ORDERED: D5W 1/2 NS KCl 20 Meq 1000 ML* 1,000 ML IV SCH ×2 (08:00→13:13)
[2017-09-22] MEDS: Cyanocobalamin TAB* 500 MCG PO SCH (08:20)
[2017-09-22] MEDS: Folic Acid TAB* 1 MG PO SCH (08:21)
[2017-09-22] MEDS: Metoprolol Tartrate TAB* 25 MG PO SCH ×2 (08:21→17:08)
[2017-09-22] MEDS: Aspirin Low Dose CHEW TAB* 81 MG PO SCH (08:21)
[2017-09-22] MEDS: sulfaSALAzine TAB* 500 MG PO SCH ×2 (09:09→20:41)
--- NOTE | 2017-09-22 10:50 | RAD ---
INDICATION: Chest pain when coughing. Sepsis. Pneumonia. History of lymphoma. COMPARISON: September 20, 2017 chest radiograph and January 22, 2011 PET/CT. TECHNIQUE: Multidetector CT images were obtained from the lung apices to the upper abdomen with 75 mL Visipaque 320 IV contrast. Pulmonary angiogram protocol. Multiplanar reformation including with maximum intensity projection. REPORT: Airspace consolidation most confluent involving the posterior lateral basal segments of the LEFT lower lobe with smaller focus at the anterior segment of the RIGHT upper lobe inferiorly. Small bilateral dependent pleural effusions. Negative for pneumothorax. Negative for lymphadenopathy. Cardiomegaly. Postsurgical change of coronary artery bypass. Negative for pericardial effusion. Normal diameter thoracic aorta with mild atherosclerotic plaque. Negative for aortic dissection. Motion artifact mildly degrades image quality on the CT pulmonary angiogram. There are no compelling filling defects from the mean through the segmental and subsegmental pulmonary arteries to indicate pulmonary embolism. Images through the upper abdomen are remarkable for cholelithiasis without additional CT abnormality of the gallbladder or evidence for biliary dilatation. Median sternotomy wires. Negative for suspicious thoracic osseous lesions or fractures. IMPRESSION: 1. Pneumonia with infiltrates at the LEFT lower lobe and RIGHT upper lobe. 2. Small bilateral dependent pleural effusions. 3. No evidence for pulmonary embolism.
--- NOTE | 2017-09-22 11:42 | PN ---
Subjective Date of Service: 09/22/17 Interval History: Chest discomfort when coughing SOB stable No myalgias Feels thirsty No urinary symptoms Objective Active Medications: Acetaminophen (Tylenol Tab*) 650 mg PO Q4H PRN PRN Reason: FEVER/PAIN Last Admin: 09/21/17 22:04 Dose: 650 mg Albuterol/Ipratropium (Duoneb (Albuterol 2.5 Mg/Ipratropium 0.5 Mg)) 1 neb INH Q4H PRN PRN Reason: SOB/WHEEZING Aspirin (Aspirin Low Dose Tab*) 81 mg PO DAILY [facility] Last Admin: 09/22/17 08:21 Dose: 81 mg Benzonatate (Tessalon Cap*) 100 mg PO BID PRN PRN Reason: COUGH Last Admin: 09/21/17 00:07 Dose: 100 mg Cyanocobalamin (Vitamin B12 Tab*) 1,000 mcg PO DAILY [facility] Last Admin: 09/22/17 08:20 Dose: 1,000 mcg Dextrose (D50w Syringe 50 Ml*) 12.5 gm IV PUSH .FOR FS < 60 - SS PRN PRN Reason: FS < 60 Folic Acid (Folvite Tab*) 1 mg PO DAILY [facility] Last Admin: 09/22/17 08:21 Dose: 1 mg Gabapentin (Neurontin Cap(*)) 300 mg PO BEDTIME [facility] Last Admin: 09/21/17 21:43 Dose: 300 mg Heparin Sodium (Porcine) (Heparin Vial(*)) 5,000 units SUBCUT Q8HR [facility] Last Admin: 09/22/17 05:23 Dose: 5,000 units Hydralazine HCl (Apresoline Iv*) 10 mg IV Q4H PRN PRN Reason: Systolic >170 Last Admin: 09/22/17 04:37 Dose: 10 mg Azithromycin 500 mg/ Sodium (Chloride) 250 mls @ 250 mls/hr IVPB Q24H [facility] Last Admin: 09/21/17 17:50 Dose: 250 mls/hr Ceftriaxone Sodium 1 gm/ (Sodium Chloride) 50 mls @ 200 mls/hr IVPB Q24HR@1800 [facility] Last Admin: 09/21/17 21:44 Dose: 200 mls/hr Insulin Human Regular (Insulin Regular Ivpb) 100 units in 100 mls @ 8.84 mls/ hr IVPB Q11H [place]; 0.1 UNITS/KG/HR PRN Reason: Protocol Last Admin: 09/22/17 08:15 Dose: 8.84 mls/hr Potassium Chloride/Dextrose (D5w 1/2 Ns Kcl 20 Meq 1000 Ml*) 1,000 mls @ 75 mls /hr IV PER RATE [facility] Last Admin: 09/22/17 08:12 Dose: 75 mls/hr Melatonin (Melatonin (Nf)) 3 mg PO BEDTIME PRN PRN Reason: SLEEP Last Admin: 09/21/17 22:06 Dose: 3 mg Metoprolol Tartrate (Lopressor Tab*) 25 mg PO QPM [facility] Last Admin: 09/21/17 17:51 Dose: 25 mg Metoprolol Tartrate (Lopressor Tab*) 50 mg PO QAM [facility] Last Admin: 09/22/17 08:21 Dose: 50 mg Niacin (Niaspan Er Tab*) 1,000 mg PO BEDTIME [facility] Last Admin: 09/21/17 21:43 Dose: 1,000 mg Ondansetron HCl (Zofran Inj*) 4 mg IV Q6H PRN PRN Reason: NAUSEA Simvastatin (Zocor(Nf)) 5 mg PO QPM [facility] Last Admin: 09/21/17 17:50 Dose: 5 mg Sulfasalazine (Azulfidine Tab*) 2,000 mg PO BID [facility] Last Admin: 09/22/17 09:09 Dose: 2,000 mg Vital Signs - 8 hr 09/22/17 09/22/17 09/22/17 03:57 04:00 04:30 Temperature 99.3 F Pulse Rate 100 100 Respiratory 15 19 Rate Blood Pressure 170/60 181/70 (mmHg) O2 Sat by Pulse 94 94 Oximetry 09/22/17 09/22/17 09/22/17 04:53 05:00 05:30 Temperature Pulse Rate 90 104 85 Respiratory 26 28 22 Rate Blood Pressure 191/71 180/75 169/61 (mmHg) O2 Sat by Pulse 96 97 96 Oximetry 09/22/17 09/22/17 09/22/17 05:46 06:00 06:30 Temperature Pulse Rate 93 82 96 Respiratory 28 28 23 Rate Blood Pressure 178/75 177/67 181/73 (mmHg) O2 Sat by Pulse 96 96 98 Oximetry 09/22/17 09/22/17 09/22/17 06:42 06:59 07:00 Temperature Pulse Rate 81 104 79 Respiratory 24 15 22 Rate Blood Pressure 175/77 183/69 169/68 (mmHg) O2 Sat by Pulse 94 95 96 Oximetry 09/22/17 09/22/17 09/22/17 07:02 07:15 07:30 Temperature Pulse Rate 70 63 104 Respiratory 25 24 27 Rate Blood Pressure 179/68 181/82 (mmHg) O2 Sat by Pulse 94 94 96 Oximetry 09/22/17 09/22/17 09/22/17 07:34 07:45 08:00 Temperature 99 F Pulse Rate 105 99 Respiratory 24 27 Rate Blood Pressure 183/80 174/72 (mmHg) O2 Sat by Pulse 96 96 Oximetry 09/22/17 09/22/17 09/22/17 08:15 08:30 08:45 Temperature Pulse Rate 99 106 101 Respiratory 25 21 23 Rate Blood Pressure 164/71 187/77 172/75 (mmHg) O2 Sat by Pulse 95 95 95 Oximetry 09/22/17 09/22/17 09/22/17 09:00 09:57 10:00 Temperature Pulse Rate 99 65 70 Respiratory 26 14 14 Rate Blood Pressure 164/88 137/67 137/71 (mmHg) O2 Sat by Pulse 97 97 97 Oximetry 09/22/17 09/22/17 09/22/17 10:30 11:00 11:34 Temperature 98.7 F Pulse Rate 67 63 Respiratory 27 1 Rate Blood Pressure 148/71 142/68 (mmHg) O2 Sat by Pulse 96 94 Oximetry Oxygen Devices in Use Now: Nasal Cannula Appearance: sitting up in bed, NAD Eyes: No Scleral Icterus, PERRLA Ears/Nose/Mouth/Throat: Clear Oropharnyx, Mucous Membranes Moist Neck: NL Appearance and Movements; NL JVP, Trachea Midline Respiratory: Symmetrical Chest Expansion and Respiratory Effort, - - rales in left base, wheezing anteriorly Cardiovascular: RRR, - - 2/6 MOISES LLSB Abdominal: NL Sounds; No Tenderness; No Distention, No Hepatosplenomegaly Lymphatic: No Cervical Adenopathy Extremities: No Edema, No Clubbing, Cyanosis Skin: No Rash or Ulcers Neurological: Alert and Oriented x 3, - - [id number] Result Diagrams: 09/22/17 05:42 09/22/17 05:42 Additional Lab and Data: Lab Results 09/20/17 09/20/1718 Range/Units 12:27 12:27 12:27 WBC 26.9 H (3.5-10.8) 10^3/ul RBC 3.21 L (4.0-5.4) 10^6/ul Hgb 10.8 L (14.0-18.0) g/dl Hct 32 L (42-52) % MCV 99 H (80-94) fL MCH 34 H (27-31) pg MCHC 34 (31-36) g/dl RDW 13 (10.5-15) % Plt Count 492 H (150-450) 10^3/ul MPV 7 L (7.4-10.4) um3 Neut % (Auto) 90.4 H (38-83) % Lymph % (Auto) 2.3 L (25-47) % [place] % (Auto) 6.8 (0-7) % Eos % (Auto) 0.2 (0-6) % Baso % (Auto) 0.3 (0-2) % Absolute Neuts (auto) 24.3 H (1.5-7.7) 10^3/ul Absolute Lymphs (auto) 0.6 L (1.0-4.8) 10^3/ul Absolute Monos (auto) 1.8 H (0-0.8) 10^3/ul Absolute Eos (auto) 0.1 (0-0.6) 10^3/ul Absolute Basos (auto) 0.1 (0-0.2) 10^3/ul Absolute Nucleated RBC 0 10^3/ul Nucleated RBC % 0 Sodium 126 L (133-145) mmol/L Potassium 3.8 (3.5-5.0) mmol/L Chloride 94 L (101-111) mmol/L Carbon Dioxide 16 L (22-32) mmol/L Anion Gap 16 H (2-11) mmol/L BUN 16 (6-24) mg/dL Creatinine 1.29 H (0.67-1.17) mg/dL Est GFR ( Amer) 71.2 (>60) Est GFR (Non-Af Amer) 55.4 (>60) BUN/Creatinine Ratio 12.4 (8-20) Glucose 401 H (70-100) mg/dL Lactic Acid 1.1 (0.5-2.0) mmol/L Calcium 10.0 (8.6-10.3) mg/dL Total Bilirubin 0.40 (0.2-1.0) mg/dL AST 13 (13-39) U/L ALT 13 (7-52) U/L Alkaline Phosphatase 102 (34-104) U/L Total Creatine Kinase 47 (10-223) U/L Troponin I 0.04 H* (<0.04) ng/mL C-Reactive Protein 303.39 H (< 5.00) mg/L Total Protein 7.8 (6.4-8.9) g/dL Albumin 3.7 (3.2-5.2) g/dL Globulin 4.1 H (2-4) g/dL Albumin/Globulin Ratio 0.9 L (1-3) Urine Color Urine Appearance Urine pH (5-9) Ur Specific [place] (1.010-1.030) Urine Protein (Negative) Urine Ketones (Negative) Urine Blood (Negative) Urine Nitrate (Negative) Urine Bilirubin (Negative) Urine Urobilinogen (Negative) Ur Leukocyte Esterase (Negative) Urine WBC (Auto) (Absent) Urine RBC (Auto) (Absent) Ur Squamous Epith Cells (Absent) Urine Bacteria (Absent) Urine Glucose (Negative) Influenza A (Rapid) (Negative) Influenza B (Rapid) (Negative) 09/20/17 09/20/17 Range/Units 12:41 12:44 WBC (3.5-10.8) 10^3/ul RBC (4.0-5.4) 10^6/ul Hgb (14.0-18.0) g/dl Hct (42-52) % MCV (80-94) fL MCH (27-31) pg MCHC (31-36) g/dl RDW (10.5-15) % Plt Count (150-450) 10^3/ul MPV (7.4-10.4) um3 Neut % (Auto) (38-83) % Lymph % (Auto) (25-47) % [place] % (Auto) (0-7) % Eos % (Auto) (0-6) % Baso % (Auto) (0-2) % Absolute Neuts (auto) (1.5-7.7) 10^3/ul Absolute Lymphs (auto) (1.0-4.8) 10^3/ul Absolute Monos (auto) (0-0.8) 10^3/ul Absolute Eos (auto) (0-0.6) 10^3/ul Absolute Basos (auto) (0-0.2) 10^3/ul Absolute Nucleated RBC 10^3/ul Nucleated RBC % Sodium (133-145) mmol/L Potassium (3.5-5.0) mmol/L Chloride (101-111) mmol/L Carbon Dioxide (22-32) mmol/L Anion Gap (2-11) mmol/L BUN (6-24) mg/dL Creatinine (0.67-1.17) mg/dL Est GFR ( Amer) (>60) Est GFR (Non-Af Amer) (>60) BUN/Creatinine Ratio (8-20) Glucose (70-100) mg/dL Lactic Acid (0.5-2.0) mmol/L Calcium (8.6-10.3) mg/dL Total Bilirubin (0.2-1.0) mg/dL AST (13-39) U/L ALT (7-52) U/L Alkaline Phosphatase (34-104) U/L Total Creatine Kinase (10-223) U/L Troponin I (<0.04) ng/mL C-Reactive Protein (< 5.00) mg/L Total Protein (6.4-8.9) g/dL Albumin (3.2-5.2) g/dL Globulin (2-4) g/dL Albumin/Globulin Ratio (1-3) Urine Color Eileen Urine Appearance Clear Urine pH 5.0 (5-9) Ur Specific [place] 1.028 (1.010-1.030) Urine Protein 2+(100 mg/dl) A (Negative) Urine Ketones 2+ A (Negative) Urine Blood 2+ A (Negative) Urine Nitrate Negative (Negative) Urine Bilirubin Negative (Negative) Urine Urobilinogen Negative (Negative) Ur Leukocyte Esterase Negative (Negative) Urine WBC (Auto) Trace(0-5/hpf) (Absent) Urine RBC (Auto) Trace(0-2/hpf) (Absent) Ur Squamous Epith Cells Present A (Absent) Urine Bacteria Absent (Absent) Urine Glucose 3+(>=500 mg/dl) A (Negative) Influenza A (Rapid) Negative (Negative) Influenza B (Rapid) Negative (Negative) Microbiology and Other Data: Microbiology 09/20/17 18:12 Gram Stain - Final Sputum 09/20/17 19:00 Legionella Urinary Antigen - Final Urine Negative Legionella Streptococcus pneumoniae Ag Screen - Final Negative S. pneumo Antigen Assess/Plan/Problems-Billing Assessment: This is a 67 yr old male with PMHx of lymphoma, CAD, DM and former smoker who presents with URI s/s and weakness. This am found to have anion gap acidosis with DKA and PNA - Patient Problems (1) DKA (diabetic ketoacidoses) Comment: likely driven by his pneumonia Restart insulin drip and start D5 1/2 NS Check BMP at noon Glucose q1 hr, BMP q4 hour (2) Pneumonia Comment: Left base c/w CTX and azithro (3) Coronary artery disease Comment: Trops x 3 remained flat (4) Diabetes Comment: A/P - As above now in DKA Continuing to hold metformin (5) Lymphoma Comment: A/P - in remission - monitor Patient should follow up as scheduled with Dr. Barbosa this month (6) Neuropathy Comment: A/P stable continue gabapentin (7) Ulcerative colitis Comment: continue sulfasalazine (8) DVT prophylaxis Comment: Heparin SQ TID
[2017-09-22 12:18] LABS: EGFR Non-African American 65.9 (>60)
[2017-09-22] MEDS: cefTRIAXone(*) 1 GM in NS 0.9% 50 ML* 50 ML IVPB SCH ×2 (12:31→18:23)
[2017-09-22] MEDS: Insulin LISPRO* 1 UNITS UNIT SUBCUT SCH ×7 (12:31→20:44)
[2017-09-22] MEDS ORDERED: Dextrose 50% Syringe 50 ML* 25 GM/50 ML SYRINGE IV PUSH PRN (14:39)
[2017-09-22] MEDS ORDERED: Insulin GLARGINE(*) 1 UNITS UNIT SUBCUT SCH (15:00)
[2017-09-22] MEDS: Azithromycin IV(*) 500 MG in NS 0.9% 250 ML* 250 ML IVPB SCH (17:00)
[2017-09-22] MEDS: CMCS:Simvastatin TAB(NF) 10 MG TAB PO SCH (17:08)
[2017-09-22] MEDS: Acetaminophen TAB* 325 MG PO PRN (20:40)
[2017-09-22] MEDS: CMCS:Melatonin (NF) 3 MG TAB PO PRN (20:40)
[2017-09-22] MEDS: Benzonatate CAP* 100 MG PO PRN (20:40)
[2017-09-22] MEDS: Gabapentin CAP(*) 100 MG PO SCH (20:41)
[2017-09-22] MEDS: Niacin ER TAB* 500 MG PO SCH (20:43)
[2017-09-23] MEDS: hydrALAZINE IV* 20 MG/ML VIAL IV PRN ×2 (04:34→21:25)
[2017-09-23] MEDS: Heparin VIAL(*) 5000 UNITS/ML VIAL (FIVE THOUSAND) SUBCUT SCH ×3 (05:49→21:21)
[2017-09-23 05:54] LABS: Hematocrit 30 % (42-52); Hemoglobin 10.1 g/dl (14.0-18.0); Mean Corpuscular HGB Conc 33 g/dl (31-36); Mean Corpuscular Hemoglobin 33 pg (27-31); Mean Corpuscular Volume 99 fL (80-94); Mean Platelet Volume 7 um3 (7.4-10.4); Platelet Count 495 10^3/ul (150-450); Red Blood Count 3.07 10^6/ul (4.0-5.4); Red Cell Distribution Width 13 % (10.5-15)
[2017-09-23 06:09] LABS: EGFR Non-African American 69.5 (>60)
[2017-09-23 06:17] LABS: ABS Basophils 0 10^3/ul (0-0.2); ABS Eosinophils 0.2 10^3/ul (0-0.6); ABS Monocytes 1.2 10^3/ul (0-0.8); ABS Neutrophils 9.6 10^3/ul (1.5-7.7); ABS Nucleated RBC 0 10^3/ul; Eosinophil % 1.7 % (0-6); Lymphocyte % 7.9 % (25-47); Nucleated Red Blood Cells % 0.1
[2017-09-23] MEDS: Insulin LISPRO* 1 UNITS UNIT SUBCUT SCH ×8 (07:37→21:17)
[2017-09-23] MEDS ORDERED: Potassium Chlor TAB* 20 MEQ TAB.ER PO ONE (08:08)
[2017-09-23] MEDS: Aspirin Low Dose CHEW TAB* 81 MG PO SCH (08:23)
[2017-09-23] MEDS: sulfaSALAzine TAB* 500 MG PO SCH ×2 (08:23→21:19)
[2017-09-23] MEDS: Cyanocobalamin TAB* 500 MCG PO SCH (08:23)
[2017-09-23] MEDS ORDERED: Insulin GLARGINE(*) 1 UNITS UNIT SUBCUT ONE (08:23)
[2017-09-23] MEDS: Metoprolol Tartrate TAB* 25 MG PO SCH ×2 (08:23→17:06)
[2017-09-23] MEDS: Folic Acid TAB* 1 MG PO SCH (08:23)
[2017-09-23] MEDS: metFORMIN* 500 MG TAB PO SCH (09:07)
--- NOTE | 2017-09-23 14:33 | PN ---
Subjective Date of Service: 09/23/17 Interval History: OOB to commode +cough No SOB, CP, N/V Objective Active Medications: Acetaminophen (Tylenol Tab*) 650 mg PO Q4H PRN PRN Reason: FEVER/PAIN Last Admin: 09/22/17 20:40 Dose: 650 mg Albuterol/Ipratropium (Duoneb (Albuterol 2.5 Mg/Ipratropium 0.5 Mg)) 1 neb INH Q4H PRN PRN Reason: SOB/WHEEZING Aspirin (Aspirin Low Dose Tab*) 81 mg PO DAILY [facility] Last Admin: 09/23/17 08:23 Dose: 81 mg Azithromycin (Zithromax Tab*) 250 mg PO DAILY@1730 [facility] Benzonatate (Tessalon Cap*) 100 mg PO BID PRN PRN Reason: COUGH Last Admin: 09/22/17 20:40 Dose: 100 mg Cyanocobalamin (Vitamin B12 Tab*) 1,000 mcg PO DAILY [facility] Last Admin: 09/23/17 08:23 Dose: 1,000 mcg Dextrose (D50w Syringe 50 Ml*) 12.5 gm IV PUSH .FOR FS < 60 - SS PRN PRN Reason: FS < 60 Folic Acid (Folvite Tab*) 1 mg PO DAILY [facility] Last Admin: 09/23/17 08:23 Dose: 1 mg Gabapentin (Neurontin Cap(*)) 300 mg PO BEDTIME [facility] Last Admin: 09/22/17 20:41 Dose: 300 mg Heparin Sodium (Porcine) (Heparin Vial(*)) 5,000 units SUBCUT Q8HR [facility] Last Admin: 09/23/17 13:07 Dose: 5,000 units Hydralazine HCl (Apresoline Iv*) 10 mg IV Q4H PRN PRN Reason: Systolic >170 Last Admin: 09/23/17 04:34 Dose: 10 mg Ceftriaxone Sodium 1 gm/ (Sodium Chloride) 50 mls @ 200 mls/hr IVPB Q24HR@1800 [facility] Stop: 09/23/17 17:59 Last Admin: 09/22/17 18:23 Dose: 200 mls/hr Lactated Ringer's (Lactated Ringers 1000 Ml Bag*) 1,000 mls @ 175 mls/hr IV PER RATE [facility] Stop: 09/24/17 14:43 Last Admin: 09/23/17 09:08 Dose: 175 mls/hr Insulin Glargine (Lantus(*)) 20 units SUBCUT Q24H [facility] Insulin Human Lispro (Humalog*) 0 units SUBCUT ACHS [facility] PRN Reason: Protocol Last Admin: 09/23/17 11:48 Dose: 6 units Insulin Human Lispro (Humalog*) 0 units SUBCUT ACHS [facility] PRN Reason: Protocol Last Admin: 09/23/17 13:06 Dose: 2 units Melatonin (Melatonin (Nf)) 3 mg PO BEDTIME PRN PRN Reason: SLEEP Last Admin: 09/22/17 20:40 Dose: 3 mg Metformin HCl (Glucophage*) 500 mg PO DAILY WITH MEAL [facility] Last Admin: 09/23/17 09:07 Dose: 500 mg Metoprolol Tartrate (Lopressor Tab*) 25 mg PO QPM [facility] Last Admin: 09/22/17 17:08 Dose: 25 mg Metoprolol Tartrate (Lopressor Tab*) 50 mg PO QAM [facility] Last Admin: 09/23/17 08:23 Dose: 50 mg Niacin (Niaspan Er Tab*) 1,000 mg PO BEDTIME [facility] Last Admin: 09/22/17 20:43 Dose: 1,000 mg Ondansetron HCl (Zofran Inj*) 4 mg IV Q6H PRN PRN Reason: NAUSEA Simvastatin (Zocor(Nf)) 5 mg PO QPM [facility] Last Admin: 09/22/17 17:08 Dose: 5 mg Sulfasalazine (Azulfidine Tab*) 2,000 mg PO BID [facility] Last Admin: 09/23/17 08:23 Dose: 2,000 mg Vital Signs - 8 hr 09/23/17 09/23/17 09/23/17 06:30 07:00 07:24 Temperature Pulse Rate 117 118 115 Respiratory 19 20 27 Rate Blood Pressure 166/82 175/64 160/76 (mmHg) O2 Sat by Pulse 94 93 95 Oximetry 09/23/17 09/23/17 09/23/17 07:30 07:38 07:40 Temperature 98.9 F Pulse Rate 111 107 Respiratory 20 20 13 Rate Blood Pressure 180/59 164/74 (mmHg) O2 Sat by Pulse 95 95 Oximetry 09/23/17 09/23/17 09/23/17 08:00 08:30 08:57 Temperature Pulse Rate 92 Respiratory 21 30 17 Rate Blood Pressure 175/66 165/85 (mmHg) O2 Sat by Pulse 95 Oximetry 09/23/17 09/23/17 09/23/17 09:00 09:01 09:30 Temperature Pulse Rate 84 78 77 Respiratory 20 19 26 Rate Blood Pressure 127/71 136/62 (mmHg) O2 Sat by Pulse 96 96 96 Oximetry 09/23/17 09/23/17 09/23/17 09:43 10:00 10:30 Temperature Pulse Rate 77 71 79 Respiratory 18 15 23 Rate Blood Pressure 144/71 148/70 (mmHg) O2 Sat by Pulse 96 96 96 Oximetry 09/23/17 09/23/17 09/23/17 11:00 11:17 11:30 Temperature 98.8 F Pulse Rate 76 78 Respiratory 22 9 Rate Blood Pressure 156/74 159/70 (mmHg) O2 Sat by Pulse 96 95 Oximetry 09/23/17 09/23/17 09/23/17 12:00 12:30 13:00 Temperature Pulse Rate 81 81 88 Respiratory 24 22 22 Rate Blood Pressure 146/77 158/77 145/64 (mmHg) O2 Sat by Pulse 95 96 96 Oximetry Oxygen Devices in Use Now: None Appearance: NAD Eyes: No Scleral Icterus, PERRLA Ears/Nose/Mouth/Throat: NL Teeth, Lips, Gums, Clear Oropharnyx, Mucous Membranes Moist Neck: NL Appearance and Movements; NL JVP, Trachea Midline Respiratory: Symmetrical Chest Expansion and Respiratory Effort, Clear to Auscultation Cardiovascular: NL Sounds; No Murmurs; No JVD, RRR Abdominal: NL Sounds; No Tenderness; No Distention Lymphatic: No Cervical Adenopathy Extremities: No Edema, No Clubbing, Cyanosis Skin: No Rash or Ulcers, No Nodules or Sclerosis Neurological: Alert and Oriented x 3 Result Diagrams: 09/23/17 05:40 09/23/17 05:40 Additional Lab and Data: Lab Results 09/20/17 09/20/17 09/20/17 Range/Units 12:27 12:27 12:27 WBC 26.9 H (3.5-10.8) 10^3/ul RBC 3.21 L (4.0-5.4) 10^6/ul Hgb 10.8 L (14.0-18.0) g/dl Hct 32 L (42-52) % MCV 99 H (80-94) fL MCH 34 H (27-31) pg MCHC 34 (31-36) g/dl RDW 13 (10.5-15) % Plt Count 492 H (150-450) 10^3/ul MPV 7 L (7.4-10.4) um3 Neut % (Auto) 90.4 H (38-83) % Lymph % (Auto) 2.3 L (25-47) % [place] % (Auto) 6.8 (0-7) % Eos % (Auto) 0.2 (0-6) % Baso % (Auto) 0.3 (0-2) % Absolute Neuts (auto) 24.3 H (1.5-7.7) 10^3/ul Absolute Lymphs (auto) 0.6 L (1.0-4.8) 10^3/ul Absolute Monos (auto) 1.8 H (0-0.8) 10^3/ul Absolute Eos (auto) 0.1 (0-0.6) 10^3/ul Absolute Basos (auto) 0.1 (0-0.2) 10^3/ul Absolute Nucleated RBC 0 10^3/ul Nucleated RBC % 0 Sodium 126 L (133-145) mmol/L Potassium 3.8 (3.5-5.0) mmol/L Chloride 94 L (101-111) mmol/L Carbon Dioxide 16 L (22-32) mmol/L Anion Gap 16 H (2-11) mmol/L BUN 16 (6-24) mg/dL Creatinine 1.29 H (0.67-1.17) mg/dL Est GFR ( Amer) 71.2 (>60) Est GFR (Non-Af Amer) 55.4 (>60) BUN/Creatinine Ratio 12.4 (8-20) Glucose 401 H (70-100) mg/dL Lactic Acid 1.1 (0.5-2.0) mmol/L Calcium 10.0 (8.6-10.3) mg/dL Total Bilirubin 0.40 (0.2-1.0) mg/dL AST 13 (13-39) U/L ALT 13 (7-52) U/L Alkaline Phosphatase 102 (34-104) U/L Total Creatine Kinase 47 (10-223) U/L Troponin I 0.04 H* (<0.04) ng/mL C-Reactive Protein 303.39 H (< 5.00) mg/L Total Protein 7.8 (6.4-8.9) g/dL Albumin 3.7 (3.2-5.2) g/dL Globulin 4.1 H (2-4) g/dL Albumin/Globulin Ratio 0.9 L (1-3) Urine Color Urine Appearance Urine pH (5-9) Ur Specific [place] (1.010-1.030) Urine Protein (Negative) Urine Ketones (Negative) Urine Blood (Negative) Urine Nitrate (Negative) Urine Bilirubin (Negative) Urine Urobilinogen (Negative) Ur Leukocyte Esterase (Negative) Urine WBC (Auto) (Absent) Urine RBC (Auto) (Absent) Ur Squamous Epith Cells (Absent) Urine Bacteria (Absent) Urine Glucose (Negative) Influenza A (Rapid) (Negative) Influenza B (Rapid) (Negative) 09/20/17 09/20/17 Range/Units 12:41 12:44 WBC (3.5-10.8) 10^3/ul RBC (4.0-5.4) 10^6/ul Hgb (14.0-18.0) g/dl Hct (42-52) % MCV (80-94) fL MCH (27-31) pg MCHC (31-36) g/dl RDW (10.5-15) % Plt Count (150-450) 10^3/ul MPV (7.4-10.4) um3 Neut % (Auto) (38-83) % Lymph % (Auto) (25-47) % [place] % (Auto) (0-7) % Eos % (Auto) (0-6) % Baso % (Auto) (0-2) % Absolute Neuts (auto) (1.5-7.7) 10^3/ul Absolute Lymphs (auto) (1.0-4.8) 10^3/ul Absolute Monos (auto) (0-0.8) 10^3/ul Absolute Eos (auto) (0-0.6) 10^3/ul Absolute Basos (auto) (0-0.2) 10^3/ul Absolute Nucleated RBC 10^3/ul Nucleated RBC % Sodium (133-145) mmol/L Potassium (3.5-5.0) mmol/L Chloride (101-111) mmol/L Carbon Dioxide (22-32) mmol/L Anion Gap (2-11) mmol/L BUN (6-24) mg/dL Creatinine (0.67-1.17) mg/dL Est GFR ( Amer) (>60) Est GFR (Non-Af Amer) (>60) BUN/Creatinine Ratio (8-20) Glucose (70-100) mg/dL Lactic Acid (0.5-2.0) mmol/L Calcium (8.6-10.3) mg/dL Total Bilirubin (0.2-1.0) mg/dL AST (13-39) U/L ALT (7-52) U/L Alkaline Phosphatase (34-104) U/L Total Creatine Kinase (10-223) U/L Troponin I (<0.04) ng/mL C-Reactive Protein (< 5.00) mg/L Total Protein (6.4-8.9) g/dL Albumin (3.2-5.2) g/dL Globulin (2-4) g/dL Albumin/Globulin Ratio (1-3) Urine Color Eileen Urine Appearance Clear Urine pH 5.0 (5-9) Ur Specific [place] 1.028 (1.010-1.030) Urine Protein 2+(100 mg/dl) A (Negative) Urine Ketones 2+ A (Negative) Urine Blood 2+ A (Negative) Urine Nitrate Negative (Negative) Urine Bilirubin Negative (Negative) Urine Urobilinogen Negative (Negative) Ur Leukocyte Esterase Negative (Negative) Urine WBC (Auto) Trace(0-5/hpf) (Absent) Urine RBC (Auto) Trace(0-2/hpf) (Absent) Ur Squamous Epith Cells Present A (Absent) Urine Bacteria Absent (Absent) Urine Glucose 3+(>=500 mg/dl) A (Negative) Influenza A (Rapid) Negative (Negative) Influenza B (Rapid) Negative (Negative) Microbiology and Other Data: Microbiology 09/20/17 18:12 Gram Stain - Final Sputum 09/20/17 19:00 Legionella Urinary Antigen - Final Urine Negative Legionella Streptococcus pneumoniae Ag Screen - Final Negative S. pneumo Antigen Assess/Plan/Problems-Billing Assessment: This is a 67 yr old male with PMHx of lymphoma, CAD, DM and former smoker who presents with URI s/s and weakness f/w DKA in setting of PNA - Patient Problems (1) DKA (diabetic ketoacidoses) Comment: likely driven by his pneumonia Off insulin gtt insulin since yesterday Increase lantus by 5 unit now and start lantus 20 u tonight Check BMP now restart meformin at 1/2 dose (daily) AG increased again off insulin gtt but FSG well controlled Repeat BMP and monitor. Unmeasured anions may be in setting of infection and not 2/2 hyperglycemia (2) Pneumonia Comment: Left base c/w CTX and azithro (3) Coronary artery disease Comment: Trops x 3 remained flat (4) Diabetes Comment: lantus increased to 20 u 09/23 ISS metformin 09/23 (5) Lymphoma Comment: A/P - in remission - monitor Patient should follow up as scheduled with Dr. Barbosa this month (6) Neuropathy Comment: A/P stable continue gabapentin (7) Ulcerative colitis Comment: continue sulfasalazine (8) DVT prophylaxis Comment: Heparin SQ TID
[2017-09-23 15:29] LABS: EGFR Non-African American 97.5 (>60)
[2017-09-23] MEDS ORDERED: Insulin GLARGINE(*) 1 UNITS UNIT SUBCUT SCH (16:00)
[2017-09-23] MEDS: CMCS:Simvastatin TAB(NF) 10 MG TAB PO SCH (17:07)
[2017-09-23] MEDS: Azithromycin TAB* 250 MG PO SCH (17:11)
[2017-09-23] MEDS ORDERED: cefTRIAXone 1000 MG SYRINGE IVPB Q24H IVPB SCH ×2 (18:00)
[2017-09-23] MEDS: Gabapentin CAP(*) 100 MG PO SCH (21:16)
[2017-09-23] MEDS: Niacin ER TAB* 500 MG PO SCH (21:18)
[2017-09-23] MEDS: CMCS:Melatonin (NF) 3 MG TAB PO PRN (21:19)
[2017-09-24] MEDS: Heparin VIAL(*) 5000 UNITS/ML VIAL (FIVE THOUSAND) SUBCUT SCH ×3 (05:23→20:56)
[2017-09-24 08:45] LABS: Hematocrit 26 % (42-52); Hemoglobin 8.7 g/dl (14.0-18.0); Mean Corpuscular HGB Conc 34 g/dl (31-36); Mean Corpuscular Hemoglobin 33 pg (27-31); Mean Corpuscular Volume 98 fL (80-94); Mean Platelet Volume 7 um3 (7.4-10.4); Platelet Count 392 10^3/ul (150-450); Red Blood Count 2.62 10^6/ul (4.0-5.4); Red Cell Distribution Width 13 % (10.5-15); White Blood Count 6.8 10^3/ul (3.5-10.8)
[2017-09-24 08:55] LABS: EGFR Non-African American 70.2 (>60)
[2017-09-24] MEDS: Insulin LISPRO* 1 UNITS UNIT SUBCUT SCH ×8 (08:59→20:55)
[2017-09-24] MEDS: Metoprolol Tartrate TAB* 25 MG PO SCH ×2 (09:03→17:41)
[2017-09-24] MEDS: Cyanocobalamin TAB* 500 MCG PO SCH (09:03)
[2017-09-24] MEDS: sulfaSALAzine TAB* 500 MG PO SCH ×2 (09:03→20:52)
[2017-09-24] MEDS: Folic Acid TAB* 1 MG PO SCH (09:04)
[2017-09-24] MEDS: metFORMIN* 500 MG TAB PO SCH ×2 (09:04→17:41)
[2017-09-24] MEDS: Aspirin Low Dose CHEW TAB* 81 MG PO SCH (09:04)
[2017-09-24 09:26] LABS: ABS Basophils 0.1 10^3/ul (0-0.2); ABS Eosinophils 0.1 10^3/ul (0-0.6); ABS Lymphocytes 0.8 10^3/ul (1.0-4.8); ABS Monocytes 0.9 10^3/ul (0-0.8)
[2017-09-24 09:30] LABS: Monocytes % 7 % (0-7)
[2017-09-24] MEDS ORDERED: Potassium Chlor TAB* 20 MEQ TAB.ER PO ONE (11:01)
--- NOTE | 2017-09-24 12:19 | PN ---
Subjective Date of Service: 09/24/17 Interval History: +cough, energy level improving, ambulating No SOB, CP, LH, N/V Objective Active Medications: Acetaminophen (Tylenol Tab*) 650 mg PO Q4H PRN PRN Reason: FEVER/PAIN Last Admin: 09/22/17 20:40 Dose: 650 mg Albuterol/Ipratropium (Duoneb (Albuterol 2.5 Mg/Ipratropium 0.5 Mg)) 1 neb INH Q4H PRN PRN Reason: SOB/WHEEZING Aspirin (Aspirin Low Dose Tab*) 81 mg PO DAILY [facility] Last Admin: 09/24/17 09:04 Dose: 81 mg Azithromycin (Zithromax Tab*) 250 mg PO DAILY@1730 [facility] Last Admin: 09/23/17 17:11 Dose: 250 mg Benzonatate (Tessalon Cap*) 100 mg PO BID PRN PRN Reason: COUGH Last Admin: 09/22/17 20:40 Dose: 100 mg Cyanocobalamin (Vitamin B12 Tab*) 1,000 mcg PO DAILY [facility] Last Admin: 09/24/17 09:03 Dose: 1,000 mcg Dextrose (D50w Syringe 50 Ml*) 12.5 gm IV PUSH .FOR FS < 60 - SS PRN PRN Reason: FS < 60 Folic Acid (Folvite Tab*) 1 mg PO DAILY [facility] Last Admin: 09/24/17 09:04 Dose: 1 mg Gabapentin (Neurontin Cap(*)) 300 mg PO BEDTIME [facility] Last Admin: 09/23/17 21:16 Dose: 300 mg Heparin Sodium (Porcine) (Heparin Vial(*)) 5,000 units SUBCUT Q8HR [facility] Last Admin: 09/24/17 05:23 Dose: 5,000 units Hydralazine HCl (Apresoline Iv*) 10 mg IV Q4H PRN PRN Reason: Systolic >170 Last Admin: 09/23/17 04:34 Dose: 10 mg Insulin Glargine (Lantus(*)) 25 units SUBCUT Q24H [facility] Insulin Human Lispro (Humalog*) 0 units SUBCUT ACHS [facility] PRN Reason: Protocol Last Admin: 09/24/17 08:59 Dose: 6 units Insulin Human Lispro (Humalog*) 0 units SUBCUT ACHS [facility] PRN Reason: Protocol Last Admin: 09/24/17 09:01 Dose: 2 units Melatonin (Melatonin (Nf)) 3 mg PO BEDTIME PRN PRN Reason: SLEEP Last Admin: 09/23/17 21:19 Dose: 3 mg Metformin HCl (Glucophage*) 850 mg PO 0800,1700 [facility] Metoprolol Tartrate (Lopressor Tab*) 25 mg PO QPM [facility] Last Admin: 09/23/17 17:06 Dose: 25 mg Metoprolol Tartrate (Lopressor Tab*) 50 mg PO QAM [facility] Last Admin: 09/24/17 09:03 Dose: 50 mg Niacin (Niaspan Er Tab*) 1,000 mg PO BEDTIME [facility] Last Admin: 09/23/17 21:18 Dose: 1,000 mg Ondansetron HCl (Zofran Inj*) 4 mg IV Q6H PRN PRN Reason: NAUSEA Simvastatin (Zocor(Nf)) 5 mg PO QPM [facility] Last Admin: 09/23/17 17:07 Dose: 5 mg Sulfasalazine (Azulfidine Tab*) 2,000 mg PO BID [facility] Last Admin: 09/24/17 09:03 Dose: 2,000 mg Vital Signs - 8 hr 09/24/17 09/24/17 09/24/17 07:36 08:00 09:53 Temperature 98.5 F Pulse Rate 97 90 Respiratory 18 18 14 Rate Blood Pressure 150/63 (mmHg) O2 Sat by Pulse 97 97 Oximetry 09/24/17 11:38 Temperature Pulse Rate 70 Respiratory 18 Rate Blood Pressure 132/68 (mmHg) O2 Sat by Pulse 95 Oximetry Oxygen Devices in Use Now: None Appearance: sitting in chair, well appearing, NAD Eyes: No Scleral Icterus, PERRLA Ears/Nose/Mouth/Throat: NL Teeth, Lips, Gums, Clear Oropharnyx, Mucous Membranes Moist Neck: NL Appearance and Movements; NL JVP, Trachea Midline Respiratory: Symmetrical Chest Expansion and Respiratory Effort, Clear to Auscultation Cardiovascular: NL Sounds; No Murmurs; No JVD, RRR Abdominal: NL Sounds; No Tenderness; No Distention, No Hepatosplenomegaly Lymphatic: No Cervical Adenopathy Extremities: No Edema Skin: No Rash or Ulcers, No Nodules or Sclerosis Neurological: Alert and Oriented x 3 Result Diagrams: 09/24/17 08:00 09/24/17 08:00 Additional Lab and Data: Lab Results 09/20/17 09/20/17 09/20/17 Range/Units 12:27 12:27 12:27 WBC 26.9 H (3.5-10.8) 10^3/ul RBC 3.21 L (4.0-5.4) 10^6/ul Hgb 10.8 L (14.0-18.0) g/dl Hct 32 L (42-52) % MCV 99 H (80-94) fL MCH 34 H (27-31) pg MCHC 34 (31-36) g/dl RDW 13 (10.5-15) % Plt Count 492 H (150-450) 10^3/ul MPV 7 L (7.4-10.4) um3 Neut % (Auto) 90.4 H (38-83) % Lymph % (Auto) 2.3 L (25-47) % [place] % (Auto) 6.8 (0-7) % Eos % (Auto) 0.2 (0-6) % Baso % (Auto) 0.3 (0-2) % Absolute Neuts (auto) 24.3 H (1.5-7.7) 10^3/ul Absolute Lymphs (auto) 0.6 L (1.0-4.8) 10^3/ul Absolute Monos (auto) 1.8 H (0-0.8) 10^3/ul Absolute Eos (auto) 0.1 (0-0.6) 10^3/ul Absolute Basos (auto) 0.1 (0-0.2) 10^3/ul Absolute Nucleated RBC 0 10^3/ul Nucleated RBC % 0 Sodium 126 L (133-145) mmol/L Potassium 3.8 (3.5-5.0) mmol/L Chloride 94 L (101-111) mmol/L Carbon Dioxide 16 L (22-32) mmol/L Anion Gap 16 H (2-11) mmol/L BUN 16 (6-24) mg/dL Creatinine 1.29 H (0.67-1.17) mg/dL Est GFR ( Amer) 71.2 (>60) Est GFR (Non-Af Amer) 55.4 (>60) BUN/Creatinine Ratio 12.4 (8-20) Glucose 401 H (70-100) mg/dL Lactic Acid 1.1 (0.5-2.0) mmol/L Calcium 10.0 (8.6-10.3) mg/dL Total Bilirubin 0.40 (0.2-1.0) mg/dL AST 13 (13-39) U/L ALT 13 (7-52) U/L Alkaline Phosphatase 102 (34-104) U/L Total Creatine Kinase 47 (10-223) U/L Troponin I 0.04 H* (<0.04) ng/mL C-Reactive Protein 303.39 H (< 5.00) mg/L Total Protein 7.8 (6.4-8.9) g/dL Albumin 3.7 (3.2-5.2) g/dL Globulin 4.1 H (2-4) g/dL Albumin/Globulin Ratio 0.9 L (1-3) Urine Color Urine Appearance Urine pH (5-9) Ur Specific [place] (1.010-1.030) Urine Protein (Negative) Urine Ketones (Negative) Urine Blood (Negative) Urine Nitrate (Negative) Urine Bilirubin (Negative) Urine Urobilinogen (Negative) Ur Leukocyte Esterase (Negative) Urine WBC (Auto) (Absent) Urine RBC (Auto) (Absent) Ur Squamous Epith Cells (Absent) Urine Bacteria (Absent) Urine Glucose (Negative) Influenza A (Rapid) (Negative) Influenza B (Rapid) (Negative) 09/20/17 09/20/17 Range/Units 12:41 12:44 WBC (3.5-10.8) 10^3/ul RBC (4.0-5.4) 10^6/ul Hgb (14.0-18.0) g/dl Hct (42-52) % MCV (80-94) fL MCH (27-31) pg MCHC (31-36) g/dl RDW (10.5-15) % Plt Count (150-450) 10^3/ul MPV (7.4-10.4) um3 Neut % (Auto) (38-83) % Lymph % (Auto) (25-47) % [place] % (Auto) (0-7) % Eos % (Auto) (0-6) % Baso % (Auto) (0-2) % Absolute Neuts (auto) (1.5-7.7) 10^3/ul Absolute Lymphs (auto) (1.0-4.8) 10^3/ul Absolute Monos (auto) (0-0.8) 10^3/ul Absolute Eos (auto) (0-0.6) 10^3/ul Absolute Basos (auto) (0-0.2) 10^3/ul Absolute Nucleated RBC 10^3/ul Nucleated RBC % Sodium (133-145) mmol/L Potassium (3.5-5.0) mmol/L Chloride (101-111) mmol/L Carbon Dioxide (22-32) mmol/L Anion Gap (2-11) mmol/L BUN (6-24) mg/dL Creatinine (0.67-1.17) mg/dL Est GFR ( Amer) (>60) Est GFR (Non-Af Amer) (>60) BUN/Creatinine Ratio (8-20) Glucose (70-100) mg/dL Lactic Acid (0.5-2.0) mmol/L Calcium (8.6-10.3) mg/dL Total Bilirubin (0.2-1.0) mg/dL AST (13-39) U/L ALT (7-52) U/L Alkaline Phosphatase (34-104) U/L Total Creatine Kinase (10-223) U/L Troponin I (<0.04) ng/mL C-Reactive Protein (< 5.00) mg/L Total Protein (6.4-8.9) g/dL Albumin (3.2-5.2) g/dL Globulin (2-4) g/dL Albumin/Globulin Ratio (1-3) Urine Color Eileen Urine Appearance Clear Urine pH 5.0 (5-9) Ur Specific [place] 1.028 (1.010-1.030) Urine Protein 2+(100 mg/dl) A (Negative) Urine Ketones 2+ A (Negative) Urine Blood 2+ A (Negative) Urine Nitrate Negative (Negative) Urine Bilirubin Negative (Negative) Urine Urobilinogen Negative (Negative) Ur Leukocyte Esterase Negative (Negative) Urine WBC (Auto) Trace(0-5/hpf) (Absent) Urine RBC (Auto) Trace(0-2/hpf) (Absent) Ur Squamous Epith Cells Present A (Absent) Urine Bacteria Absent (Absent) Urine Glucose 3+(>=500 mg/dl) A (Negative) Influenza A (Rapid) Negative (Negative) Influenza B (Rapid) Negative (Negative) Microbiology and Other Data: Microbiology 09/20/17 18:12 Gram Stain - Final Sputum 09/20/17 19:00 Legionella Urinary Antigen - Final Urine Negative Legionella Streptococcus pneumoniae Ag Screen - Final Negative S. pneumo Antigen Assess/Plan/Problems-Billing Assessment: This is a 67 yr old male with PMHx of lymphoma, CAD, DM and former smoker who presents with URI s/s and weakness f/w DKA in setting of PNA - Patient Problems (1) DKA (diabetic ketoacidoses) Comment: likely driven by his pneumonia Off insulin gtt insulin since 09/22 Lantus increased to 20 units 09/23 with 09/24's AM glucose of 232 Total insulin requirement >50 units on 09/23 which seems out of proportion to severity of his DM2 with previous regimen of metformin 500 BID and HbA1c 7.4 Suspect insulin resistance in setting of acute infection but would like to confirm with endocrine if there are other etiologies or tests we should consider. Message left at Dr. Webster office. AG now closed with bicarb normalized (2) Pneumonia Comment: Left base c/w CTX and azithro day 11/15 (3) Coronary artery disease Comment: Trops x 3 remained flat (4) Diabetes Comment: lantus increased to 25 u 09/24 ISS metformin increased to BID 09/24 (5) Lymphoma Comment: A/P - in remission - monitor Patient should follow up as scheduled with Dr. Barbosa this month (6) Neuropathy Comment: A/P stable continue gabapentin (7) Ulcerative colitis Comment: continue sulfasalazine (8) DVT prophylaxis Comment: Heparin SQ TID Status and Disposition: Plan on d/c when insulin regimen is deemed stable.
[2017-09-24] MEDS ORDERED: Insulin GLARGINE(*) 1 UNITS UNIT SUBCUT SCH (15:30)
[2017-09-24] MEDS ORDERED: metFORMIN* 850 MG TAB PO SCH (17:00)
[2017-09-24] MEDS: CMCS:Simvastatin TAB(NF) 10 MG TAB PO SCH (17:40)
[2017-09-24] MEDS: Azithromycin TAB* 250 MG PO SCH (17:46)
[2017-09-24] MEDS: CMCS:Melatonin (NF) 3 MG TAB PO PRN (20:51)
[2017-09-24] MEDS: Acetaminophen TAB* 325 MG PO PRN (20:51)
[2017-09-24] MEDS: Gabapentin CAP(*) 100 MG PO SCH (20:53)
[2017-09-24] MEDS: Niacin ER TAB* 500 MG PO SCH (20:54)
[2017-09-25] MEDS: Heparin VIAL(*) 5000 UNITS/ML VIAL (FIVE THOUSAND) SUBCUT SCH (05:51)
[2017-09-25] MEDS: Insulin LISPRO* 1 UNITS UNIT SUBCUT SCH ×4 (08:58→12:53)
[2017-09-25] MEDS: metFORMIN* 500 MG TAB PO SCH (08:59)
[2017-09-25] MEDS: Cyanocobalamin TAB* 500 MCG PO SCH (08:59)
[2017-09-25] MEDS: sulfaSALAzine TAB* 500 MG PO SCH (08:59)
[2017-09-25] MEDS: Metoprolol Tartrate TAB* 25 MG PO SCH (08:59)
[2017-09-25] MEDS: Aspirin Low Dose CHEW TAB* 81 MG PO SCH (08:59)
[2017-09-25] MEDS: Folic Acid TAB* 1 MG PO SCH (08:59)
[2017-09-25 09:36] LABS: Hematocrit 28 % (42-52); Hemoglobin 9.6 g/dl (14.0-18.0); Mean Corpuscular HGB Conc 34 g/dl (31-36); Mean Corpuscular Hemoglobin 34 pg (27-31); Mean Corpuscular Volume 98 fL (80-94); Mean Platelet Volume 7 um3 (7.4-10.4); Platelet Count 452 10^3/ul (150-450); Red Blood Count 2.86 10^6/ul (4.0-5.4); Red Cell Distribution Width 14 % (10.5-15); White Blood Count 7.7 10^3/ul (3.5-10.8)
[2017-09-25 09:50] LABS: EGFR Non-African American 81.8 (>60)
[2017-09-25 09:58] LABS: ABS Basophils 0.1 10^3/ul (0-0.2); ABS Eosinophils 0.1 10^3/ul (0-0.6); ABS Monocytes 1.1 10^3/ul (0-0.8); ABS Neutrophils 5.4 10^3/ul (1.5-7.7)
[2017-09-25 10:08] LABS: Monocytes % 9 % (0-7)
[2017-09-25] MEDS ORDERED: Potassium Chlor TAB* 20 MEQ TAB.ER PO ONE (10:49)
[2017-09-25 16:05] VITALS: BP 144/65
--- NOTE | 2017-09-26 14:38 | DS ---
CC: Dr. Collins * DISCHARGE SUMMARY: DATE OF ADMISSION: 09/20/17 DATE OF DISCHARGE: 09/25/17 PRIMARY CARE PROVIDER: Dr. Collins. PRIMARY DIAGNOSES: 1. Diabetic ketoacidosis. 2. Left lower lobe and right upper lobe pneumonia. 3. Acute kidney injury. SECONDARY DIAGNOSES: 1. Left lower lobe pneumonia. 2. Type 2 diabetes. 3. Anemia. 4. Hypertension. 5. History of coronary artery disease. MEDICATIONS AT DISCHARGE: Include: 1. Vitamin B12 of 1000 mcg daily. 2. Metoprolol tartrate 50 mg in the morning and 25 mg in the evening. 3. Folic acid 1 mg daily. 4. Aspirin 81 mg daily. 5. Sulfasalazine 1500 mg 3 times a day. 6. Niacin 1000 mg daily. 7. Metformin 500 mg twice daily. 8. Simvastatin 5 mg in the evening. 9. Gabapentin 300 mg at bedtime. 10. Levofloxacin 750 mg for 4 additional days. 11. Insulin glargine 25 units subcutaneously in the evening. PERTINENT IMAGING PERFORMED DURING HOSPITAL STAY: CTA of the chest and thorax. Impression: Pneumonia with infiltrates at the left lower lobe and right upper lobe. Small bilateral dependent pleural effusions and no evidence for pulmonary embolism. PERTINENT LABORATORY DATA: White blood cell count on presentation 27, on discharge 7.7. Hemoglobin A1c of 7.4. Creatinine on presentation 1.29 and on discharge 0.9. Bicarb nadired at 11, returned to 24 on the day of discharge. HISTORY OF PRESENT ILLNESS AND HOSPITAL COURSE: This is a 67-year-old man with a history of type 2 diabetes, relatively well controlled on metformin twice daily what seemed like a viral illness that never resolved. Started on azithromycin prior to presentation; however, shortness of breath continued to worsen and he presented to the hospital with cough and fever, was found with a left lower and right upper lobe pneumonia and a leukocytosis as high as 27,000. In conjunction with his severe infection, he was found with metabolic acidosis thought in the setting of DKA with blood sugar as high as 401. He was admitted to the ICU and started on insulin drip. Treated aggressively with IV hydration. He was taken off the insulin drip and his anion gap did reopen, needed to be briefly restarted on insulin drip as well as continue aggressive fluid hydration with lactated ringers. His insulin was titrated up over several days to include Lantus 25 units daily as well as a sliding scale insulin. On the day of discharge, he did require several units of the sliding scale. His preprandial fingerstick was 159 on the day of discharge. It seemed his insulin requirement was out of proportion to the systemic inflammation that he had secondary to his infection. I did discuss this case with Dr. Fletcher in formal consultation on the telephone who thought that this was still likely the infection contributing to his difficult to control blood sugars. I am not discharging the patient on insulin sliding scale, but only 25 units of Lantus and restarted on his metformin daily. I think he will need close followup to titrate down Lantus as his infection resolves or he may need the addition of insulin sliding scale if his resistance maintains or persists. On the day of discharge, the patient was ambulating around the hospital without difficulty. At followup, please; 1. Evaluate blood sugar control. Adjust insulin up or down and/or add sliding scale. 2. Can consider increasing metformin. 3. No other specific labs or vitals that need followup. Reasons to return to the hospital including but not limited to recurrent or worsening symptoms including fevers, chills, night sweats, worsening cough, shortness of breath, chest pain, nausea, vomiting, lightheadedness, loss of consciousness, dizziness, excessive urination, or thirst discussed with the patient. He acknowledged understanding. TIME SPENT: Greater than 45 minutes was spent on the discharge of this patient , greater than half was spent [id number] with the patient. [id number]/CPS #: [id number] SANDRITA
== END 2017-09-25 15:50 | disposition home or self-care (01) | DRG 193 ==
LOC: ED 11:51 → MEDTELE 15:47 → ICU 09-21 07:50 → MED 09-23 15:59
PROVIDERS: ADMIT Internal Medicine; ATTEND Internal Medicine
DX: J18.9 Pneumonia, unspecified organism (principal); E11.10 Type 2 diabetes mellitus with ketoacidosis without coma; N17.9 Acute kidney failure, unspecified; E87.2 Acidosis; J90 Pleural effusion, not elsewhere classified; C85.90 Non-Hodgkin lymphoma, unspecified, unspecified site; K51.90 Ulcerative colitis, unspecified, without complications; I25.10 Atherosclerotic heart disease of native coronary artery without angina pectoris; D64.9 Anemia, unspecified; R74.8 Abnormal levels of other serum enzymes; J02.9 Acute pharyngitis, unspecified; E11.40 Type 2 diabetes mellitus with diabetic neuropathy, unspecified; E78.00 Pure hypercholesterolemia, unspecified; I10 Essential (primary) hypertension; Z85.46 Personal history of malignant neoplasm of prostate; Z72.89 Other problems related to lifestyle; Z82.49 Family history of ischemic heart disease and other diseases of the circulatory system; Z95.1 Presence of aortocoronary bypass graft; Z80.0 Family history of malignant neoplasm of digestive organs; Z80.42 Family history of malignant neoplasm of prostate; Z87.891 Personal history of nicotine dependence; Z79.82 Long term (current) use of aspirin; Z79.4 Long term (current) use of insulin
CPT/HCPCS: 36415; 71046; 71275; 80048; 80053; 81003; 81015; 82550; 82803; 82947; 83036; 83605; 84132; 84145; 84484; 85025; 85610; 86140; 87040; 87070; 87077; 87086; 87205; 87502; 87899; 93005; 99284; A9270-GY; J0360; J0456; J0696; J1644; J1815; J3480; J3490; Q9967

== ENCOUNTER 2022-01-04 10:23 | Inpatient (IN) ==
[2022-01-04 10:53] LABS: Hematocrit 32 % (42-52); Hemoglobin 10.3 g/dL (14.0-18.0); Mean Corpuscular HGB Conc 32 g/dL (31-36); Mean Corpuscular Hemoglobin 30 pg (27-31); Mean Corpuscular Volume 93 fL (80-94); Mean Platelet Volume 7.3 fL (7.4-10.4); Platelet Count 528 10^3/uL (150-450); Red Blood Count 3.43 10^6 /uL (4.18-5.48); Red Cell Distribution Width 13 % (10-15)
[2022-01-04 11:09] LABS: Albumin 3.3 g/dL (3.2-5.2); Calcium 7.6 mg/dL (8.6-10.3); Magnesium 1.6 mg/dL (1.9-2.7); Potassium 3.8 mmol/L (3.5-5.0); Total Bilirubin 0.4 mg/dL (0.2-1.0)
[2022-01-04 11:15] LABS: Albumin/Globulin Ratio 1.6 (1-3); Globulin 2.1 g/dL (2-4); Total Protein 5.4 g/dL (6.4-8.9); eGFR CKD-EPI 53.4 (>60)
[2022-01-04 13:23] LABS: ABS Lymphocytes 0.6 10^3/ul (1.0-4.8); ABS Monocytes 1.4 10^3/ul (0-0.8); Giant Platelets Present; Lymphocyte % 4.3 %
[2022-01-04] MEDS ORDERED: Ondansetron 4 mg VIAL 2 MG/ML 2 ml VIAL IV PRN (13:54)
[2022-01-04] MEDS ORDERED: Dextrose 50% Syringe 50 ml 25 GM/50 ML SYRINGE IV PUSH PRN (14:01)
[2022-01-04] MEDS: methylPREDNISolone SOD SUCC 40 mg/ml 1 ml VIAL IV SCH ×2 (14:50→21:20)
[2022-01-04] MEDS: Pantoprazole VIAL 40 MG VIAL IV SCH (14:50)
[2022-01-04] MEDS: Enoxaparin 40 MG/0.4 ML SYR SUBCUT SCH (14:51)
[2022-01-04] MEDS: NS 0.9% 1000 ml BAG 1,000 ML IV SCH ×2 (16:21→21:27)
[2022-01-04 18:21] LABS: Hematocrit 27 % (42-52); Hemoglobin 9.1 g/dL (14.0-18.0); Mean Corpuscular HGB Conc 34 g/dL (31-36); Mean Corpuscular Hemoglobin 31 pg (27-31); Mean Corpuscular Volume 92 fL (80-94); Mean Platelet Volume 6.9 fL (7.4-10.4); Platelet Count 426 10^3/uL (150-450); Red Blood Count 2.95 10^6 /uL (4.18-5.48); Red Cell Distribution Width 14 % (10-15)
[2022-01-04] MEDS: CMCS:Simvastatin 10 mg TAB (NF) PO SCH (21:21)
[2022-01-05] MEDS: NS 0.9% 1000 ml BAG 1,000 ML IV SCH ×4 (02:30→20:22)
[2022-01-05] MEDS: methylPREDNISolone SOD SUCC 40 mg/ml 1 ml VIAL IV SCH ×3 (06:18→22:13)
[2022-01-05] MEDS: Enoxaparin 40 MG/0.4 ML SYR SUBCUT SCH (09:43)
[2022-01-05] MEDS: Pantoprazole VIAL 40 MG VIAL IV SCH (15:09)
[2022-01-05] MEDS ORDERED: Magnesium Sulfate 2 GM IV (Premix) IVPB ONE (15:10)
[2022-01-05] MEDS: CMCS:Simvastatin 10 mg TAB (NF) PO SCH (21:06)
[2022-01-06] MEDS: NS 0.9% 1000 ml BAG 1,000 ML IV SCH ×5 (01:26→22:41)
[2022-01-06] MEDS: methylPREDNISolone SOD SUCC 40 mg/ml 1 ml VIAL IV SCH ×3 (05:59→21:54)
[2022-01-06] MEDS: Enoxaparin 40 MG/0.4 ML SYR SUBCUT SCH (08:50)
[2022-01-06 09:41] LABS: Hematocrit 23 % (42-52); Hemoglobin 7.5 g/dL (14.0-18.0); Mean Corpuscular HGB Conc 33 g/dL (31-36); Mean Corpuscular Hemoglobin 31 pg (27-31); Mean Corpuscular Volume 94 fL (80-94); Mean Platelet Volume 6.7 fL (7.4-10.4); Platelet Count 295 10^3/uL (150-450); Red Blood Count 2.42 10^6 /uL (4.18-5.48); Red Cell Distribution Width 14 % (10-15); White Blood Count 7.6 10^3/uL (3.5-10.8)
[2022-01-06 10:16] LABS: ABS Lymphocytes 0.4 10^3/ul (1.0-4.8); ABS Monocytes 1.2 10^3/ul (0-0.8); ABS Neutrophils 5.9 10^3/ul (1.5-7.7); Eosinophil % 0.3 %; Lymphocyte % 5.4 %; Nucleated Red Blood Cells % 0.1
[2022-01-06 10:22] LABS: Albumin/Globulin Ratio 1.8 (1-3); Calcium 6.6 mg/dL (8.6-10.3); Globulin 1.7 g/dL (2-4); Potassium 3.2 mmol/L (3.5-5.0); Total Bilirubin 0.4 mg/dL (0.2-1.0); Total Protein 4.7 g/dL (6.4-8.9)
[2022-01-06] MEDS: Pantoprazole VIAL 40 MG VIAL IV SCH (13:53)
[2022-01-06] MEDS: CMCS:Simvastatin 10 mg TAB (NF) PO SCH (21:58)
[2022-01-06 22:58] LABS: Ferritin 251.9 ng/mL (24-336)
[2022-01-07] MEDS: NS 0.9% 1000 ml BAG 1,000 ML IV SCH ×4 (03:40→22:12)
[2022-01-07] MEDS: methylPREDNISolone SOD SUCC 40 mg/ml 1 ml VIAL IV SCH ×3 (05:24→22:09)
[2022-01-07] MEDS: Enoxaparin 40 MG/0.4 ML SYR SUBCUT SCH (08:39)
[2022-01-07 09:21] LABS: Total Bilirubin 0.5 mg/dL (0.2-1.0)
[2022-01-07 09:27] LABS: Albumin/Globulin Ratio 1.6 (1-3); Globulin 1.9 g/dL (2-4); Total Protein 4.9 g/dL (6.4-8.9)
[2022-01-07 09:37] LABS: Calcium 6.3 mg/dL (8.6-10.3)
[2022-01-07] MEDS ORDERED: CALCIUM GLUCONATE 1GM/50ML NS 1 GM/50 ML BAG IV ONE (10:12)
[2022-01-07 11:08] LABS: Hematocrit 21 % (42-52); Hemoglobin 6.8 g/dL (14.0-18.0); Mean Corpuscular HGB Conc 33 g/dL (31-36); Mean Corpuscular Hemoglobin 32 pg (27-31); Mean Corpuscular Volume 95 fL (80-94); Mean Platelet Volume 6.5 fL (7.4-10.4); Platelet Count 268 10^3/uL (150-450); Red Blood Count 2.17 10^6 /uL (4.18-5.48); Red Cell Distribution Width 14 % (10-15); White Blood Count 7.7 10^3/uL (3.5-10.8)
[2022-01-07 13:49] LABS: ABS Eosinophils 0.1 10^3/ul (0-0.6); ABS Lymphocytes 0.7 10^3/ul (1.0-4.8); ABS Monocytes 1.3 10^3/ul (0-0.8); ABS Neutrophils 5.7 10^3/ul (1.5-7.7); Eosinophil % 0.8 %; Lymphocyte % 8.7 %; Nucleated Red Blood Cells % 0.1
[2022-01-07] MEDS: Pantoprazole VIAL 40 MG VIAL IV SCH (14:39)
[2022-01-07] MEDS: CMCS:Simvastatin 10 mg TAB (NF) PO SCH (22:06)
[2022-01-08] MEDS: methylPREDNISolone SOD SUCC 40 mg/ml 1 ml VIAL IV SCH ×3 (05:44→13:41)
[2022-01-08 06:38] LABS: Albumin 2.8 g/dL (3.2-5.2); Globulin 1.4 g/dL (2-4); Potassium 3.3 mmol/L (3.5-5.0); Total Bilirubin 0.7 mg/dL (0.2-1.0); Total Protein 4.2 g/dL (6.4-8.9)
[2022-01-08 06:57] LABS: Calcium 6.3 mg/dL (8.6-10.3)
[2022-01-08] MEDS: Enoxaparin 40 MG/0.4 ML SYR SUBCUT SCH (08:44)
[2022-01-08 09:00] LABS: Hematocrit 24 % (42-52); Hemoglobin 7.9 g/dL (14.0-18.0); Mean Corpuscular HGB Conc 34 g/dL (31-36); Mean Corpuscular Hemoglobin 32 pg (27-31); Mean Corpuscular Volume 93 fL (80-94); Mean Platelet Volume 6.6 fL (7.4-10.4); Platelet Count 249 10^3/uL (150-450); Red Blood Count 2.52 10^6 /uL (4.18-5.48); Red Cell Distribution Width 14 % (10-15); White Blood Count 9.8 10^3/uL (3.5-10.8)
[2022-01-08 10:04] LABS: RBC Morphology Normal (Normal)
[2022-01-08 10:06] LABS: ABS Lymphocytes 0.9 10^3/ul (1.0-4.8); ABS Neutrophils 8.4 10^3/ul (1.5-7.7)
[2022-01-08 10:07] LABS: ABS Eosinophils 0.1 10^3/ul (0-0.6)
[2022-01-08 10:39] LABS: Magnesium 1.3 mg/dL (1.9-2.7)
[2022-01-08] MEDS ORDERED: CHOLECALCIFEROL 50000 UNIT PO ONE (12:00)
[2022-01-08] MEDS: Pantoprazole VIAL 40 MG VIAL IV SCH ×2 (12:30→13:41)
[2022-01-08] MEDS ORDERED: Calcium Gluconate 2 GM in NS 0.9% 100 ml BAG 100 ML IV ONE (13:00)
[2022-01-08] MEDS ORDERED: Magnesium Sulf 4 GM/100 ML IV 4,000 MG/100 ML BAG IVPB ONE (13:00)
[2022-01-08] MEDS ORDERED: Potassium Chlor 20 meq TAB.ER PO SCH (13:00)
[2022-01-08 16:13] VITALS: BP 174/73
== END 2022-01-08 19:50 | disposition home or self-care (01) | DRG 394 ==
LOC: CHOA 10:23 → SSU 12:16
PROVIDERS: ADMIT Internal Medicine Hematology & Oncology; ATTEND Internal Medicine Hematology & Oncology

== ENCOUNTER 2022-06-10 13:30 | Inpatient (IN) ==
[2022-06-10 14:45] LABS: ABS Lymphocytes 0.6 10^3/ul (1.0-4.8); ABS Neutrophils 7.9 10^3/ul (1.5-7.7); Eosinophil % 0.1 %; Hematocrit 31 % (42-52); Hemoglobin 10.1 g/dL (14.0-18.0); Lymphocyte % 6.7 %; Mean Corpuscular HGB Conc 32 g/dL (31-36); Mean Corpuscular Hemoglobin 36 pg (27-31); Mean Corpuscular Volume 112 fL (80-94); Mean Platelet Volume 7.5 fL (7.4-10.4); Platelet Count 344 10^3/uL (150-450); Red Cell Distribution Width 19 % (10-15); White Blood Count 9.5 10^3/uL (3.5-10.8)
[2022-06-10 14:57] LABS: Albumin 3.9 g/dL (3.2-5.2); Calcium 9.3 mg/dL (8.6-10.3); Magnesium 1.7 mg/dL (1.9-2.7); Potassium 5.2 mmol/L (3.5-5.0); Total Bilirubin 0.4 mg/dL (0.2-1.0)
[2022-06-10 15:03] LABS: Albumin/Globulin Ratio 1.2 (1-3); Creatinine, Serum 3.43 mg/dL (0.67-1.17); Globulin 3.2 g/dL (2-4); Total Protein 7.1 g/dL (6.4-8.9); eGFR CKD-EPI 18.1 (>60)
[2022-06-10] MEDS ORDERED: Famotidine IV 10 MG/ML 2 ml VIAL (20 mg) ONE (17:34)
[2022-06-10] MEDS: NS 0.9% 1000 ml BAG 1,000 ML IV SCH (20:14)
[2022-06-10] MEDS ORDERED: Magnesium CITRATE LIQ 300 ML BTL PO ONE (20:39)
[2022-06-10] MEDS ORDERED: Aspirin EC 81 mg TAB.EC (enteric coated) PO SCH (21:00)
[2022-06-10] MEDS: Senna TAB 8.6 mg TAB PO SCH (22:29)
[2022-06-10] MEDS: Heparin 5000 UNITS/ML 1 mL VIAL SUBCUT SCH (22:29)
[2022-06-10] MEDS: Ondansetron 4 mg VIAL 2 MG/ML 2 ml VIAL IV PRN (22:30)
[2022-06-10] MEDS: Polyethylene Glycol 3350 17 GM PACKET PO SCH (22:30)
[2022-06-11] MEDS: NS 0.9% 1000 ml BAG 1,000 ML IV SCH ×3 (01:34→11:58)
[2022-06-11] MEDS: Ondansetron 4 mg VIAL 2 MG/ML 2 ml VIAL IV PRN ×2 (04:38→11:59)
[2022-06-11 06:01] LABS: ABS Lymphocytes 0.7 10^3/ul (1.0-4.8); ABS Monocytes 1.4 10^3/ul (0-0.8); ABS Neutrophils 6.5 10^3/ul (1.5-7.7); Eosinophil % 0.1 %; Hematocrit 28 % (42-52); Hemoglobin 9.1 g/dL (14.0-18.0); Lymphocyte % 8.1 %; Mean Corpuscular HGB Conc 32 g/dL (31-36); Mean Corpuscular Hemoglobin 36 pg (27-31); Mean Corpuscular Volume 111 fL (80-94); Mean Platelet Volume 7.8 fL (7.4-10.4); Platelet Count 314 10^3/uL (150-450); Red Blood Count 2.55 10^6 /uL (4.18-5.48); Red Cell Distribution Width 18 % (10-15); White Blood Count 8.7 10^3/uL (3.5-10.8)
[2022-06-11 06:21] LABS: Albumin 3.2 g/dL (3.2-5.2); Calcium 7.9 mg/dL (8.6-10.3); Potassium 4.9 mmol/L (3.5-5.0); Total Bilirubin 0.3 mg/dL (0.2-1.0)
[2022-06-11 06:27] LABS: Albumin/Globulin Ratio 1.2 (1-3); Creatinine, Serum 3.49 mg/dL (0.67-1.17); Globulin 2.7 g/dL (2-4); Total Protein 5.9 g/dL (6.4-8.9); eGFR CKD-EPI 17.7 (>60)
[2022-06-11] MEDS: Heparin 5000 UNITS/ML 1 mL VIAL SUBCUT SCH (08:08)
[2022-06-11] MEDS: Senna TAB 8.6 mg TAB PO SCH (08:08)
[2022-06-11] MEDS: Polyethylene Glycol 3350 17 GM PACKET PO SCH (08:17)
[2022-06-11] MEDS ORDERED: Lidocaine 1% VIAL 10 MG/ML VIAL 30 ML INJ ONE (09:28)
[2022-06-11] MEDS ORDERED: Lactulose 30 ml UDC PO PRN (09:31)
[2022-06-11 14:38] LABS: PCO2 Arterial 23 mmHg (35-45); PO2 Arterial 104 mmHg (80-100)
[2022-06-11 15:19] LABS: Calcium 8.4 mg/dL (8.6-10.3); Creatinine, Serum 4.24 mg/dL (0.67-1.17)
[2022-06-11 16:10] LABS: Potassium 6.5 mmol/L (3.5-5.0)
[2022-06-11] MEDS ORDERED: Sodium Polystyrene ORAL.SUSP 15 GM/60 ML BTL ONE (16:42)
[2022-06-11] MEDS ORDERED: Sodium Polystyrene RECTAL 30 GM/120 ML RECTAL.SUS PR ONE (17:00)
[2022-06-11] MEDS ORDERED: Lidocaine 1% VIAL 10 MG/ML VIAL 30 ML ONE (18:16)
[2022-06-11] MEDS ORDERED: NS 0.9% 1000 ml BAG 1,000 ML IV SCH (19:15)
[2022-06-11 19:53] LABS: Urine Appearance Cloudy; Urine Bilirubin Negative (Negative); Urine Blood Negative (Negative); Urine Color Amber; Urine Glucose Negative (Negative); Urine Ketones Negative (Negative); Urine Nitrite Negative (Negative); Urine Protein 2+(100 mg/dL) (Negative); Urine Specific Gravity 1.021 (1.002-1.030); Urine Urobilinogen Negative (Negative)
[2022-06-11] MEDS: Albumin Human 25% 25 GM/100 ML BTL IV SCH ×5 (19:53→21:31)
[2022-06-11 19:58] LABS: Urine Bacteria Absent (Absent); Urine Red Blood Cell 2+(6-10/hpf) (Absent); Urine Squamous Epithelial Cell Present (Absent); Urine White Blood Cell 2+(11-20/hpf) (Absent)
[2022-06-12] MEDS: Heparin 1,000 UNIT/ML 10 ml (10,000 UNITS) CATHLAB/DIALYSIS IV PRN (00:04)
[2022-06-12] MEDS ORDERED: Metoprolol Tartrate 5 mg VIAL 5 ml VIAL (1 mg/ml) IV PRN (00:05)
[2022-06-12] MEDS: Albumin Human 25% 25 GM/100 ML BTL IV SCH ×2 (00:26→11:04)
[2022-06-12] MEDS: Heparin 5000 UNITS/ML 1 mL VIAL SUBCUT SCH ×3 (01:22→20:31)
[2022-06-12] MEDS: Senna TAB 8.6 mg TAB PO SCH ×2 (01:23→07:33)
[2022-06-12 01:49] LABS: Hepatitis B Surface Antigen Nonreactive (Nonreactive)
[2022-06-12 02:07] LABS: Hepatitis B Surface Ab Not Immune (Immune)
[2022-06-12 04:05] LABS: ABS Lymphocytes 0.3 10^3/ul (1.0-4.8); Eosinophil % 0.2 %; Hematocrit 23 % (42-52); Hemoglobin 7.3 g/dL (14.0-18.0); Lymphocyte % 4.2 %; Mean Corpuscular HGB Conc 32 g/dL (31-36); Mean Corpuscular Hemoglobin 35 pg (27-31); Mean Corpuscular Volume 109 fL (80-94); Mean Platelet Volume 7.8 fL (7.4-10.4); Platelet Count 212 10^3/uL (150-450); Red Blood Count 2.09 10^6 /uL (4.18-5.48); Red Cell Distribution Width 18 % (10-15); White Blood Count 7.4 10^3/uL (3.5-10.8)
[2022-06-12 04:19] LABS: Calcium 8.4 mg/dL (8.6-10.3); Creatinine, Serum 2.91 mg/dL (0.67-1.17); Magnesium 1.7 mg/dL (1.9-2.7); Phosphorus 3.8 mg/dL (2.5-5.0); Potassium 3.7 mmol/L (3.5-5.0); eGFR CKD-EPI 22.1 (>60)
[2022-06-12] MEDS: Heparin 1,000 UNIT/ML 10 ml (10,000 UNITS) CATHLAB/DIALYSIS DIALYSIS PRN ×3 (08:10→11:20)
[2022-06-12] MEDS: Pantoprazole VIAL 40 MG VIAL IV SCH (08:36)
[2022-06-12 09:10] LABS: Calcium 8.2 mg/dL (8.6-10.3); Creatinine, Serum 3.22 mg/dL (0.67-1.17); Potassium 3.8 mmol/L (3.5-5.0); eGFR CKD-EPI 19.5 (>60)
[2022-06-12] MEDS ORDERED: Phenol 1.4% Throat Spray BTL MT PRN (11:09)
[2022-06-12] MEDS: Acetaminophen IV 1 GM/100ML 1,000 MG/100 ML BAG IV PRN ×2 (11:29→23:36)
[2022-06-12 16:38] LABS: Creatinine, Serum 2.25 mg/dL (0.67-1.17); Potassium 3.5 mmol/L (3.5-5.0)
[2022-06-13 09:30] LABS: Hematocrit 28 % (42-52); Hemoglobin 8.9 g/dL (14.0-18.0); Mean Corpuscular HGB Conc 32 g/dL (31-36); Mean Corpuscular Hemoglobin 35 pg (27-31); Mean Corpuscular Volume 109 fL (80-94); Mean Platelet Volume 7.8 fL (7.4-10.4); Platelet Count 258 10^3/uL (150-450); Red Blood Count 2.56 10^6 /uL (4.18-5.48); Red Cell Distribution Width 18 % (10-15); White Blood Count 4.4 10^3/uL (3.5-10.8)
[2022-06-13] MEDS: Pantoprazole VIAL 40 MG VIAL IV SCH ×2 (09:30→09:35)
[2022-06-13 09:34] LABS: Calcium 8.3 mg/dL (8.6-10.3); Creatinine, Serum 3.41 mg/dL (0.67-1.17); Magnesium 1.9 mg/dL (1.9-2.7); Phosphorus 5.1 mg/dL (2.5-5.0); Potassium 3.6 mmol/L (3.5-5.0); eGFR CKD-EPI 18.2 (>60)
[2022-06-13] MEDS: Heparin 5000 UNITS/ML 1 mL VIAL SUBCUT SCH ×2 (09:35→23:13)
[2022-06-13 10:48] LABS: ABS Eosinophils 0.1 10^3/ul (0-0.6); ABS Lymphocytes 0.5 10^3/ul (1.0-4.8); ABS Neutrophils 2.8 10^3/ul (1.5-7.7); Anisocytosis 1+; Eosinophil % 1.7 %; Lymphocyte % 11.4 %; Macrocytosis 1+
[2022-06-13 11:23] LABS: C Reactive Protein 257.35 mg/L (<8.01)
[2022-06-13] MEDS ORDERED: NS 0.9% 250 ml 250 ML IV ONE (11:41)
[2022-06-13] MEDS ORDERED: Linezolid 600 MG IVPREMIX(*) 600 MG/300 ML BAG IVPB SCH (14:00)
[2022-06-13] MEDS ORDERED: Zosyn per Pharmacy NOTE FOLLOW UP SCH (14:00)
[2022-06-13] MEDS ORDERED: Piperacillin/Tazobac ADVAN 3.375 GM in NS 0.9% 100 ml BAG 100 ML IV ONE (14:15)
[2022-06-13] MEDS ORDERED: cefTRIAXone ADVAN VIAL 1 GM in NS 0.9% 50 ML 50 ML IVPB SCH (15:00)
[2022-06-13] MEDS: cefTRIAXone ADVAN VIAL 1 GM in NS 0.9% 50 ML 50 ML IVPB SCH (23:15)
[2022-06-14 06:21] LABS: Hematocrit 25 % (42-52); Hemoglobin 8.2 g/dL (14.0-18.0); Mean Corpuscular HGB Conc 33 g/dL (31-36); Mean Corpuscular Hemoglobin 36 pg (27-31); Mean Corpuscular Volume 109 fL (80-94); Mean Platelet Volume 7.5 fL (7.4-10.4); Platelet Count 202 10^3/uL (150-450); Red Blood Count 2.32 10^6 /uL (4.18-5.48); Red Cell Distribution Width 17 % (10-15); White Blood Count 4.4 10^3/uL (3.5-10.8)
[2022-06-14 06:32] LABS: Albumin 3.4 g/dL (3.2-5.2); Albumin/Globulin Ratio 1.7 (1-3); Calcium 8.3 mg/dL (8.6-10.3); Creatinine, Serum 4.65 mg/dL (0.67-1.17); Phosphorus 5.8 mg/dL (2.5-5.0); Potassium 3.3 mmol/L (3.5-5.0); Total Bilirubin 0.4 mg/dL (0.2-1.0); Total Protein 5.4 g/dL (6.4-8.9); eGFR CKD-EPI 12.6 (>60)
[2022-06-14] MEDS ORDERED: KCL 20 MEQ/100 ML IVPREMIX 20 MEQ/100 ML BAG IV SCH (08:00)
[2022-06-14 08:20] LABS: Macrocytosis 1+
[2022-06-14 08:21] LABS: ABS Eosinophils 0.1 10^3/ul (0-0.6); ABS Lymphocytes 0.5 10^3/ul (1.0-4.8); ABS Neutrophils 2.8 10^3/ul (1.5-7.7); Eosinophil % 2.7 %; Lymphocyte % 11.3 %
[2022-06-14] MEDS: Pantoprazole VIAL 40 MG VIAL IV SCH (08:52)
[2022-06-14] MEDS: Heparin 5000 UNITS/ML 1 mL VIAL SUBCUT SCH ×2 (08:52→21:08)
[2022-06-14] MEDS ORDERED: NS 0.9% 1000 ml BAG 1,000 ML IV SCH ×2 (09:45→16:45)
[2022-06-14 12:32] LABS: Calcium 8.1 mg/dL (8.6-10.3); Creatinine, Serum 4.8 mg/dL (0.67-1.17); Potassium 3.5 mmol/L (3.5-5.0); eGFR CKD-EPI 12.1 (>60)
[2022-06-14] MEDS: Heparin 1,000 UNIT/ML 10 ml (10,000 UNITS) CATHLAB/DIALYSIS DIALYSIS PRN ×3 (13:31→16:40)
[2022-06-14 16:11] LABS: Kappa Free Light Chain 5.97 mg/dL; Lambda Free Light Chain, S 4.38 mg/dL
[2022-06-14 16:19] LABS: Proteinase 3 <0.2 U
[2022-06-14 16:20] LABS: Myeloperoxidase Antibody <0.2 U
[2022-06-14] MEDS ORDERED: Heparin DRIP 25,000 UNITS BAG 25,000 UNITS/500 ML BAG IV SCH (16:30)
[2022-06-14] MEDS: cefTRIAXone ADVAN VIAL 1 GM in NS 0.9% 50 ML 50 ML IVPB SCH (22:56)
[2022-06-15 06:32] LABS: ABS Eosinophils 0.1 10^3/ul (0-0.6); ABS Lymphocytes 0.6 10^3/ul (1.0-4.8); ABS Neutrophils 3.8 10^3/ul (1.5-7.7); Hematocrit 26 % (42-52); Hemoglobin 8.6 g/dL (14.0-18.0); Lymphocyte % 11.2 %; Mean Corpuscular HGB Conc 34 g/dL (31-36); Mean Corpuscular Hemoglobin 36 pg (27-31); Mean Corpuscular Volume 108 fL (80-94); Mean Platelet Volume 7.5 fL (7.4-10.4); Platelet Count 217 10^3/uL (150-450); Red Blood Count 2.36 10^6 /uL (4.18-5.48); Red Cell Distribution Width 17 % (10-15); White Blood Count 5.5 10^3/uL (3.5-10.8)
[2022-06-15 07:01] LABS: C Reactive Protein 272.03 mg/L (<8.01); Creatinine, Serum 3.81 mg/dL (0.67-1.17); Phosphorus 4.9 mg/dL (2.5-5.0); Potassium 3.2 mmol/L (3.5-5.0)
[2022-06-15] MEDS: Heparin 5000 UNITS/ML 1 mL VIAL SUBCUT SCH ×2 (09:16→22:07)
[2022-06-15] MEDS: Pantoprazole VIAL 40 MG VIAL IV SCH (09:16)
[2022-06-15] MEDS: cefTRIAXone ADVAN VIAL 1 GM in NS 0.9% 50 ML 50 ML IVPB SCH (22:02)
[2022-06-15] MEDS: KCL 20 MEQ/100 ML IVPREMIX 20 MEQ/100 ML BAG IV SCH (22:39)
[2022-06-16] MEDS: KCL 20 MEQ/100 ML IVPREMIX 20 MEQ/100 ML BAG IV SCH (00:50)
[2022-06-16 05:59] LABS: Hematocrit 27 % (42-52); Hemoglobin 8.6 g/dL (14.0-18.0); Mean Corpuscular HGB Conc 32 g/dL (31-36); Mean Corpuscular Hemoglobin 34 pg (27-31); Mean Corpuscular Volume 108 fL (80-94); Mean Platelet Volume 7.2 fL (7.4-10.4); Platelet Count 233 10^3/uL (150-450); Red Blood Count 2.52 10^6 /uL (4.18-5.48); Red Cell Distribution Width 17 % (10-15); White Blood Count 6.4 10^3/uL (3.5-10.8)
[2022-06-16 06:02] LABS: Calcium 8.4 mg/dL (8.6-10.3); Magnesium 2.1 mg/dL (1.9-2.7); Potassium 3.5 mmol/L (3.5-5.0)
[2022-06-16 06:08] LABS: Creatinine, Serum 4.86 mg/dL (0.67-1.17); eGFR CKD-EPI 11.9 (>60)
[2022-06-16] MEDS: Pantoprazole VIAL 40 MG VIAL IV SCH (08:49)
[2022-06-16] MEDS: Heparin 5000 UNITS/ML 1 mL VIAL SUBCUT SCH ×2 (08:49→20:40)
[2022-06-17] MEDS: Acetaminophen IV 1 GM/100ML 1,000 MG/100 ML BAG IV PRN (03:44)
[2022-06-17 06:31] LABS: Hematocrit 27 % (42-52); Hemoglobin 8.7 g/dL (14.0-18.0); Mean Corpuscular HGB Conc 33 g/dL (31-36); Mean Corpuscular Hemoglobin 36 pg (27-31); Mean Corpuscular Volume 108 fL (80-94); Mean Platelet Volume 7.1 fL (7.4-10.4); Platelet Count 238 10^3/uL (150-450); Red Blood Count 2.46 10^6 /uL (4.18-5.48); Red Cell Distribution Width 17 % (10-15); White Blood Count 5.9 10^3/uL (3.5-10.8)
[2022-06-17 06:46] LABS: Calcium 8.2 mg/dL (8.6-10.3); Creatinine, Serum 5.39 mg/dL (0.67-1.17); Potassium 3.6 mmol/L (3.5-5.0); eGFR CKD-EPI 10.5 (>60)
[2022-06-17 06:52] LABS: ABS Eosinophils 0.1 10^3/ul (0-0.6); ABS Lymphocytes 0.8 10^3/ul (1.0-4.8); ABS Monocytes 0.9 10^3/ul (0-0.8); Lymphocyte % 13.5 %
[2022-06-17] MEDS: Heparin 5000 UNITS/ML 1 mL VIAL SUBCUT SCH ×2 (08:19→22:06)
[2022-06-17] MEDS: Pantoprazole VIAL 40 MG VIAL IV SCH (08:20)
[2022-06-17 13:03] LABS: Albumin 3.1 g/dL (3.4-4.7); Albumin/Globulin Ratio 1.07; Gamma Globulin 0.7 g/dL (0.6-1.6); Total Protein(PEP) 5.9 g/dL (6.3 - 7.9)
[2022-06-17 14:41] LABS: Complement C3 83 mg/dL (75 - 175)
[2022-06-17] MEDS: Heparin 1,000 UNIT/ML 10 ml (10,000 UNITS) CATHLAB/DIALYSIS IV PRN (19:15)
[2022-06-18 06:00] LABS: Hematocrit 27 % (42-52); Hemoglobin 8.7 g/dL (14.0-18.0); Mean Corpuscular HGB Conc 32 g/dL (31-36); Mean Corpuscular Hemoglobin 35 pg (27-31); Mean Corpuscular Volume 109 fL (80-94); Mean Platelet Volume 7.3 fL (7.4-10.4); Platelet Count 202 10^3/uL (150-450); Red Cell Distribution Width 17 % (10-15); White Blood Count 5.3 10^3/uL (3.5-10.8)
[2022-06-18 06:48] LABS: Calcium 8.3 mg/dL (8.6-10.3); Creatinine, Serum 3.87 mg/dL (0.67-1.17); Potassium 3.6 mmol/L (3.5-5.0); eGFR CKD-EPI 15.7 (>60)
[2022-06-18] MEDS: Heparin 5000 UNITS/ML 1 mL VIAL SUBCUT SCH ×2 (08:39→20:20)
[2022-06-18] MEDS: Pantoprazole VIAL 40 MG VIAL IV SCH (08:39)
[2022-06-18 12:20] LABS: C-ANCA Negative (Negative); P-ANCA Negative (Negative)
[2022-06-18] MEDS ORDERED: Lorazepam PYXIS KEY PRN (14:08)
[2022-06-18] MEDS ORDERED: LORazepam 2 mg VIAL 1 ml IV PUSH PRN (14:08)
[2022-06-19 05:51] LABS: Flag, M-protein Isotype Negative (Negative)
[2022-06-19 06:43] LABS: Hematocrit 26 % (42-52); Hemoglobin 8.5 g/dL (14.0-18.0); Mean Corpuscular HGB Conc 32 g/dL (31-36); Mean Corpuscular Hemoglobin 35 pg (27-31); Mean Corpuscular Volume 109 fL (80-94); Mean Platelet Volume 7.9 fL (7.4-10.4); Platelet Count 201 10^3/uL (150-450); Red Blood Count 2.43 10^6 /uL (4.18-5.48); Red Cell Distribution Width 17 % (10-15); White Blood Count 5.8 10^3/uL (3.5-10.8)
[2022-06-19 07:10] LABS: Calcium 8.3 mg/dL (8.6-10.3); Creatinine, Serum 4.87 mg/dL (0.67-1.17); Potassium 3.7 mmol/L (3.5-5.0); eGFR CKD-EPI 11.9 (>60)
[2022-06-19 07:45] LABS: ABS Eosinophils 0.1 10^3/ul (0-0.6); ABS Lymphocytes 0.8 10^3/ul (1.0-4.8); ABS Neutrophils 3.8 10^3/ul (1.5-7.7); Eosinophil % 1.5 %; Lymphocyte % 14.2 %
[2022-06-19] MEDS: Pantoprazole VIAL 40 MG VIAL IV SCH (11:12)
[2022-06-19] MEDS ORDERED: Lidocaine 2% PF 5 ML VIAL ONE (16:21)
[2022-06-19] MEDS ORDERED: Rocuronium 50 mg VIAL 10 mg/ml 5 ml VIAL (50 mg) ONE ×2 (16:21→18:38)
[2022-06-19] MEDS ORDERED: fentaNYL 250 mcg/5 ml 50 MCG/ML 5 ml VIAL (250 MCG) ONE (16:21)
[2022-06-19] MEDS ORDERED: Etomidate 20 mg/10 ml 2 MG/ML 10 ml VIAL ONE (16:21)
[2022-06-19] MEDS ORDERED: Bupivacaine 0.25% SDV 30 ML ONE (16:33)
[2022-06-19] MEDS ORDERED: ceFAZolin 2 GM PREMIX 2 GM/50 ML BAG ONE (17:23)
[2022-06-19] MEDS ORDERED: ceFAZolin 2 GM PREMIX 2 GM/50 ML BAG IVPB ONE (17:30)
[2022-06-19] MEDS ORDERED: Propofol 10 MG/ML 20 ML BTL ONE ×2 (18:15→19:09)
[2022-06-19] MEDS ORDERED: Sugammadex 500 MG/5 ML 5 ml VIAL IV PUSH ONE (19:42)
[2022-06-19] MEDS ORDERED: fentaNYL 100 mcg/2 ml 50 MCG/ML VIAL ONE (20:50)
[2022-06-19] MEDS: fentaNYL 100 mcg/2 ml 50 MCG/ML VIAL IV PRN ×4 (20:53→21:18)
[2022-06-19] MEDS ORDERED: Naloxone 0.4 mg VIAL 0.4 mg/ml 1 ml VIAL IV PRN (20:54)
[2022-06-19] MEDS ORDERED: Ondansetron 4 mg VIAL 2 MG/ML 2 ml VIAL IV PRN (20:54)
[2022-06-20] MEDS: Pantoprazole VIAL 40 MG VIAL IV SCH (07:47)
[2022-06-20] MEDS: NS 0.9% 1000 ml BAG 1,000 ML IV SCH ×2 (07:48→18:08)
[2022-06-20 08:12] LABS: Hematocrit 26 % (42-52); Hemoglobin 8.7 g/dL (14.0-18.0); Mean Corpuscular HGB Conc 33 g/dL (31-36); Mean Corpuscular Hemoglobin 35 pg (27-31); Mean Corpuscular Volume 108 fL (80-94); Mean Platelet Volume 7.3 fL (7.4-10.4); Platelet Count 175 10^3/uL (150-450); Red Blood Count 2.46 10^6 /uL (4.18-5.48); Red Cell Distribution Width 18 % (10-15); White Blood Count 8.4 10^3/uL (3.5-10.8)
[2022-06-20 08:26] LABS: Calcium 8.4 mg/dL (8.6-10.3); Potassium 3.8 mmol/L (3.5-5.0)
[2022-06-20 08:31] LABS: Creatinine, Serum 5.33 mg/dL (0.67-1.17); eGFR CKD-EPI 10.7 (>60)
[2022-06-20 09:19] LABS: Anisocytosis 1+; Macrocytosis 1+
[2022-06-20 09:20] LABS: ABS Lymphocytes 0.4 10^3/ul (1.0-4.8); ABS Monocytes 0.8 10^3/ul (0-0.8); ABS Neutrophils 7.1 10^3/ul (1.5-7.7); Lymphocyte % 5.1 %
[2022-06-20] MEDS: Heparin 1,000 UNIT/ML 10 ml (10,000 UNITS) CATHLAB/DIALYSIS IV PRN (12:40)
[2022-06-20] MEDS: Ondansetron 4 mg VIAL 2 MG/ML 2 ml VIAL IV PRN ×2 (18:08→23:30)
[2022-06-21] MEDS: NS 0.9% 1000 ml BAG 1,000 ML IV SCH (03:43)
[2022-06-21 06:54] LABS: ABS Eosinophils 0.1 10^3/ul (0-0.6); ABS Lymphocytes 0.5 10^3/ul (1.0-4.8); ABS Monocytes 0.9 10^3/ul (0-0.8); ABS Neutrophils 5.4 10^3/ul (1.5-7.7); Hematocrit 24 % (42-52); Hemoglobin 7.6 g/dL (14.0-18.0); Lymphocyte % 7.5 %; Mean Corpuscular HGB Conc 32 g/dL (31-36); Mean Corpuscular Hemoglobin 35 pg (27-31); Mean Corpuscular Volume 108 fL (80-94); Mean Platelet Volume 7.9 fL (7.4-10.4); Platelet Count 141 10^3/uL (150-450); Red Blood Count 2.17 10^6 /uL (4.18-5.48); Red Cell Distribution Width 18 % (10-15); White Blood Count 6.9 10^3/uL (3.5-10.8)
[2022-06-21 07:05] LABS: Calcium 7.6 mg/dL (8.6-10.3); Creatinine, Serum 3.55 mg/dL (0.67-1.17); Potassium 3.5 mmol/L (3.5-5.0); eGFR CKD-EPI 17.4 (>60)
[2022-06-21] MEDS: Pantoprazole VIAL 40 MG VIAL IV SCH (08:53)
[2022-06-21] MEDS: Ondansetron 4 mg VIAL 2 MG/ML 2 ml VIAL IV PRN ×3 (08:53→21:08)
[2022-06-22] MEDS: NS 0.9% 1000 ml BAG 1,000 ML IV SCH ×3 (00:04→20:23)
[2022-06-22] MEDS: Ondansetron 4 mg VIAL 2 MG/ML 2 ml VIAL IV PRN ×3 (05:18→20:26)
[2022-06-22 06:16] LABS: Hematocrit 24 % (42-52); Hemoglobin 7.8 g/dL (14.0-18.0); Mean Corpuscular HGB Conc 32 g/dL (31-36); Mean Corpuscular Hemoglobin 35 pg (27-31); Mean Corpuscular Volume 107 fL (80-94); Mean Platelet Volume 7.5 fL (7.4-10.4); Platelet Count 133 10^3/uL (150-450); Red Blood Count 2.25 10^6 /uL (4.18-5.48); Red Cell Distribution Width 17 % (10-15)
[2022-06-22] MEDS: Pantoprazole VIAL 40 MG VIAL IV SCH (09:16)
[2022-06-23] MEDS: Ondansetron 4 mg VIAL 2 MG/ML 2 ml VIAL IV PRN ×3 (06:22→22:34)
[2022-06-23] MEDS: NS 0.9% 1000 ml BAG 1,000 ML IV SCH ×2 (06:34→17:02)
[2022-06-23 06:49] LABS: ABS Basophils 0.1 10^3/ul (0-0.2); ABS Lymphocytes 0.4 10^3/ul (1.0-4.8); ABS Monocytes 0.8 10^3/ul (0-0.8); ABS Neutrophils 8.1 10^3/ul (1.5-7.7); Eosinophil % 0.5 %; Hematocrit 25 % (42-52); Lymphocyte % 4.7 %; Mean Corpuscular HGB Conc 33 g/dL (31-36); Mean Corpuscular Hemoglobin 35 pg (27-31); Mean Corpuscular Volume 108 fL (80-94); Platelet Count 132 10^3/uL (150-450); Red Blood Count 2.29 10^6 /uL (4.18-5.48); Red Cell Distribution Width 18 % (10-15); White Blood Count 9.4 10^3/uL (3.5-10.8)
[2022-06-23 07:15] LABS: Calcium 7.8 mg/dL (8.6-10.3); Creatinine, Serum 3.76 mg/dL (0.67-1.17); Magnesium 1.5 mg/dL (1.9-2.7); Potassium 3.5 mmol/L (3.5-5.0); eGFR CKD-EPI 16.2 (>60)
[2022-06-23] MEDS ORDERED: Magnesium Sulfate IV 3 GM in NS 0.9% 100 ml BAG 100 ML IVPB ONE (07:39)
[2022-06-23] MEDS ORDERED: Magnesium Sulfate IV 1GM/100ML 1 GM/100 ML BAG IV ONE (07:59)
[2022-06-23] MEDS: Pantoprazole VIAL 40 MG VIAL IV SCH (09:53)
[2022-06-24] MEDS: NS 0.9% 1000 ml BAG 1,000 ML IV SCH (03:03)
[2022-06-24 06:59] LABS: ABS Lymphocytes 0.4 10^3/ul (1.0-4.8); ABS Monocytes 0.6 10^3/ul (0-0.8); ABS Neutrophils 6.3 10^3/ul (1.5-7.7); Eosinophil % 0.4 %; Hematocrit 24 % (42-52); Hemoglobin 7.7 g/dL (14.0-18.0); Lymphocyte % 5.7 %; Mean Corpuscular HGB Conc 32 g/dL (31-36); Mean Corpuscular Hemoglobin 35 pg (27-31); Mean Corpuscular Volume 108 fL (80-94); Mean Platelet Volume 8.1 fL (7.4-10.4); Platelet Count 121 10^3/uL (150-450); Red Blood Count 2.21 10^6 /uL (4.18-5.48); Red Cell Distribution Width 18 % (10-15); White Blood Count 7.4 10^3/uL (3.5-10.8)
[2022-06-24 07:03] LABS: Creatinine, Serum 3.9 mg/dL (0.67-1.17); Magnesium 1.5 mg/dL (1.9-2.7); Potassium 3.9 mmol/L (3.5-5.0); eGFR CKD-EPI 15.5 (>60)
[2022-06-24] MEDS: Ondansetron 4 mg VIAL 2 MG/ML 2 ml VIAL IV PRN ×2 (08:38→16:43)
[2022-06-24] MEDS: Pantoprazole VIAL 40 MG VIAL IV SCH (08:39)
[2022-06-24] MEDS ORDERED: NS 0.9% 1000 ml BAG 1,000 ML IV SCH (10:22)
[2022-06-25 06:53] LABS: Hematocrit 23 % (42-52); Hemoglobin 7.5 g/dL (14.0-18.0); Mean Corpuscular HGB Conc 33 g/dL (31-36); Mean Corpuscular Hemoglobin 35 pg (27-31); Mean Corpuscular Volume 107 fL (80-94); Mean Platelet Volume 8.5 fL (7.4-10.4); Platelet Count 123 10^3/uL (150-450); Red Blood Count 2.14 10^6 /uL (4.18-5.48); Red Cell Distribution Width 18 % (10-15); White Blood Count 6.3 10^3/uL (3.5-10.8)
[2022-06-25 07:02] LABS: Calcium 7.9 mg/dL (8.6-10.3); Creatinine, Serum 3.84 mg/dL (0.67-1.17); Potassium 3.9 mmol/L (3.5-5.0); eGFR CKD-EPI 15.8 (>60)
[2022-06-25] MEDS: Pantoprazole VIAL 40 MG VIAL IV SCH (08:38)
[2022-06-25] MEDS: Acetaminophen IV 1 GM/100ML 1,000 MG/100 ML BAG IV PRN (13:29)
[2022-06-25] MEDS: Ondansetron 4 mg VIAL 2 MG/ML 2 ml VIAL IV PRN (17:20)
[2022-06-26] MEDS: Pantoprazole VIAL 40 MG VIAL IV SCH (07:28)
[2022-06-26] MEDS: Ondansetron 4 mg VIAL 2 MG/ML 2 ml VIAL IV PRN (07:28)
[2022-06-26 09:55] VITALS: BP 110/56
== END 2022-06-26 11:15 | disposition hospice, home (50) | DRG 981 ==
LOC: CHOA 13:30 → SUATTDRO 16:02 → MEDTELE 16:02 → ICU 06-11 18:29 → MEDTELE 06-12 17:57 → SSU 06-19 22:08
PROVIDERS: ADMIT Internal Medicine Medical Oncology; ATTEND Internal Medicine